=== PATIENT | male | born 1970 | race Two or more races ===

== ENCOUNTER → 2016-11-20 | Emergency (ER) | payer SELFPAY ==
[~2016-11-20] MED LIST: FAMOTIDINE 20 MG/50 ML IVPB 20 MG in PREMIX 50 IVPB ONE; MAG HYDROX/AL HYDROX/SIMETH 355 ML ORAL.SUSP PO ONE
[2016-11-20 10:05] VITALS: BP 129/77; PULSE 83; TEMP 98.3; BMI 30.2
--- NOTE | 2016-11-20 10:13 | PDOC ---
History of Present Illness - General Chief Complaint: Pain Stated Complaint: ABD PAIN Time Seen by Provider: 11/20/16 10:13 Past History - Past Medical History Allergies/Adverse Reactions: Allergies Allergy/AdvReac Type Severity Reaction Status Date / Time codeine [Codeine] Allergy Severe anaphylaxis Verified 11/20/16 10:05 Home Medications: Ambulatory Orders NK [No Known Home Medication] 08/07/16 Asthma: Yes Diabetes: Yes - Surgical History Abdominal Surgery: Yes (HERNIA) - Immunization History Td Vaccination: Yes Immunization Up to Date: Yes - Psycho/Social/Smoking Cessation Hx Anxiety: No Suicidal Ideation: No Smoking Status: No Smoking History: Never smoked Have you smoked in the past 12 months: No Number of Cigarettes Smoked Daily: 0 Hx Alcohol Use: No Drug/Substance Use Hx: No Substance Use Type: None *Physical Exam - Vital Signs Last Vital Signs Temp Pulse Resp BP Pulse Ox 98.3 F 83 20 129/77 98 11/20/16 10:01 11/20/16 10:01 11/20/16 10:01 11/20/16 10:01 11/20/16 10:01 Medical Decision Making - Medical Decision Making Pt [facility] after i signed up for the ptaient I was not able to evaluate the patient. *DC/Admit/Observation/Transfer Diagnosis at time of Disposition: Abdominal pain Qualifiers: Abdominal location: epigastric Qualified Code(s): R10.13 - Epigastric pain - Discharge Dispostion Disposition: LEFT BEFORE [facility] - Referrals Referrals: Nuria Pratt [Primary Care Provider] -
== END | disposition left against medical advice (07) ==
LOC: JER 09:58
DX: Z53.21 Procedure and treatment not carried out due to patient leaving prior to being seen by health care provider (principal)
CPT/HCPCS: 99281-25

== ENCOUNTER 2016-12-23 14:49 | Emergency (ER) | payer SELFPAY ==
[2016-12-23 14:59] VITALS: BMI 30.2
[2016-12-23] MEDS ORDERED: SODIUM CHLORIDE 1,000 ML IV STA ×2 (15:37→17:26)
[2016-12-23] MEDS ORDERED: INSULIN REGULAR HUMAN 100 UNITS/ML *VIAL IVPUSH ONE (15:55)
[2016-12-23 16:25] LABS: BASOPHIL 0.5 % (0-2.0); EOSINOPHIL 1.6 % (0-4.5); MCH 29.8 pg (25.7-33.7); MCHC 35.6 g/dl (32.0-35.9); MEAN CELL VOLUME 83.7 fl (80-96); MEAN PLT VOLUME 10.5 fl (7.5-11.1); NEUTROPHILS 67.9 % (42.8-82.8); PLATELET COUNT 239 K/MM3 (134-434); RDW 12.9 % (11.9-15.9); WHITE BLOOD COUNT 6.4 K/mm3 (4.0-10.0)
--- NOTE | 2016-12-23 16:45 | PDOC ---
*Physical Exam - Vital Signs Last Vital Signs Temp Pulse Resp BP Pulse Ox 97.8 F 72 18 122/83 97 12/23/16 14:55 12/23/16 14:55 12/23/16 14:55 12/23/16 14:55 12/23/16 14:55 - Physical Exam Comments: 12/23/16 17:49 The patient was examined by [FRITZ He] under my direct supervision. I personally evaluated the patient. I concur with the above findings and the plan of care. 12/23/16 18:13 patient is a 46-year-old, who present polydipsia and polyuria associated w Significantly elevated blood sugar.In the ER, patient is awake and alert, nontoxic appearing. CMP reveals blood glucose of 640 with 1+ acetone. Anion gap is noted to be 12. Sodium bicarbonate is within normal limit. I do not suspect DKA at this time as there is no evidence of increased anion gap are significantly decreased sodium bicarbonate, however given patient's noncompliance and significantly elevated blood glucose, patient was advised of the need for admission, rehydration and better glucose control. He expressed understanding of the risks associated with poorly controlled diabetes but refused and wished to sign out AMA. Patient's metformin prescription was L a chronically sent to his preferred pharmacy. Patient advised to follow-up with medical clinic promptly. ED Treatment Course - LABORATORY CBC & Chemistry Diagram: 12/23/16 16:00 12/23/16 16:00 - ADDITIONAL ORDERS Additional order review: 12/23/16 16:00 RBC 4.76 MCV 83.7 MCHC 35.6 RDW 12.9 MPV 10.5 D Neutrophils % 67.9 D Lymphocytes % 22.8 D Monocytes % 7.2 Eosinophils % 1.6 Basophils % 0.5 - Medications Given in the ED: ED Medications Discontinued Medications Generic Name Dose Route Start Last Admin Trade Name Freq PRN Reason Stop Dose Admin Sodium Chloride 1,000 mls @ 1,000 mls/hr 12/23/16 15:37 12/23/16 16:02 Normal Saline - IV 12/23/16 16:36 1,000 mls/hr ASDIR STA Administration Insulin Human Regular 6 units 12/23/16 15:55 12/23/16 16:03 Novolin R Vial *For Ivpush Or Iv Drip Only* IVPUSH 12/23/16 15:56 6 unit ONCE ONE Administration *DC/Admit/Observation/Transfer Diagnosis at time of Disposition: Hyperglycemia, Hyponatremia DKA (diabetic ketoacidoses) Qualifiers: Diabetes mellitus type: type 1 Diabetes mellitus complication detail: without coma Qualified Code(s): E10.10 - Type 1 diabetes mellitus with ketoacidosis without coma - Discharge Dispostion Disposition: AGAINST MEDICAL ADVICE Condition at time of disposition: Fair - Prescriptions Prescriptions: Metformin HCl [Glucophage -] 500 mg PO BID #60 tablet - Referrals Referrals: Nuria Pratt [Primary Care Provider] - - Patient Instructions Additional Instructions: You have refused further evaluation and admission in the ED. You understand that you can return at any point to continue work up. Please take your metformin [place] follow-up at [facility] at [phone]
--- NOTE | 2016-12-23 16:57 | PDOC ---
History of Present Illness - General Chief Complaint: Blood Sugar Problem Stated Complaint: HIGH BLOOD SUGAR Time Seen by Provider: 12/23/16 15:36 History Source: Patient - History of Present Illness Timing/Duration: other Associated Symptoms: denies: chest pain, cough, diaphoresis, nausea/vomiting, shortness of breath, weakness Past History - Past Medical History Allergies/Adverse Reactions: Allergies Allergy/AdvReac Type Severity Reaction Status Date / Time codeine [Codeine] Allergy Severe anaphylaxis Verified 12/23/16 14:55 Home Medications: Ambulatory Orders Metformin HCl [Glucophage -] 500 mg PO BID #60 tablet 12/23/16 Metformin HCl [Glucophage] 0 mg PO DAILY 12/23/16 Asthma: Yes Diabetes: Yes - Surgical History Abdominal Surgery: Yes (HERNIA) - Immunization History Td Vaccination: Yes Immunization Up to Date: Yes - Psycho/Social/Smoking Cessation Hx Anxiety: No Suicidal Ideation: No Smoking Status: No Smoking History: Never smoked Have you smoked in the past 12 months: No Number of Cigarettes Smoked Daily: 0 Information on smoking cessation initiated: No Hx Alcohol Use: No Drug/Substance Use Hx: No Substance Use Type: None Review of Systems - Review of Systems Constitutional: No: Chills, Fever Respiratory: No: Cough, Shortness of Breath Cardiac (ROS): No: Chest Pain ABD/GI: No: Diarrhea, Nausea, Vomiting : Yes: Frequency. No: Burning, Dysuria, Flank Pain, Hematuria Endocrine: Yes: Increased Thirst, Increased Urine *Physical Exam - Vital Signs Last Vital Signs Temp Pulse Resp BP Pulse Ox 97.8 F 72 18 122/83 97 12/23/16 14:55 12/23/16 14:55 12/23/16 14:55 12/23/16 14:55 12/23/16 14:55 - Physical Exam General Appearance: Yes: Appropriately Dressed. No: Apparent Distress HEENT: positive: Normal Voice Neck: positive: Supple Respiratory/Chest: positive: Lungs Clear, Normal Breath Sounds. negative: Respiratory Distress Cardiovascular: positive: Regular Rate, S1, S2 Gastrointestinal/Abdominal: positive: Soft. negative: Tender Musculoskeletal: negative: CVA Tenderness Extremity: positive: Normal Inspection Integumentary: positive: Dry, Warm Neurologic: positive: Fully Oriented, Alert, Normal Mood/Affect ED Treatment Course - LABORATORY CBC & Chemistry Diagram: 12/23/16 16:00 12/23/16 16:00 - ADDITIONAL ORDERS Additional order review: 12/23/16 16:00 RBC 4.76 MCV 83.7 MCHC 35.6 RDW 12.9 MPV 10.5 D Neutrophils % 67.9 D Lymphocytes % 22.8 D Monocytes % 7.2 Eosinophils % 1.6 Basophils % 0.5 - Medications Given in the ED: ED Medications Discontinued Medications Generic Name Dose Route Start Last Admin Trade Name Samreen PRN Reason Stop Dose Admin Sodium Chloride 1,000 mls @ 1,000 mls/hr 12/23/16 15:37 12/23/16 16:02 Normal Saline - IV 12/23/16 16:36 1,000 mls/hr ASDIR STA Administration Insulin Human Regular 6 units 12/23/16 15:55 12/23/16 16:03 Novolin R Vial *For Ivpush Or Iv Drip Only* IVPUSH 12/23/16 15:56 6 unit ONCE ONE Administration Medical Decision Making - Medical Decision Making 12/23/16 16:53 46 yo M, h/o asthma, NIDDM and has not taken his diabetic meds in almost a year 2/2 lack of insurance, "I have been controlling my sugar with vit B as per pt", now here w/ polydipsia/uria and dry mouth x several days. States he rarely check his sugar at home but checked it this am and machine read HI. See exam Hyperglycemia 2/2 med non-compliance Stable in ED -IVF -insulin -labs r/o complications, i.e DKA -reassess 12/23/16 17:25 BG 640 w/ small acetone. NA 129, K wnl. Anion gap of 12, VBG pending. M/l mild DKA which we will continue managing w/ IVF and SQ insulin. Will admit at this time 12/23/16 17:32 Pt informed of results and told that he might be in mild DKA which is life threatening and that he needs to be admitted. Pt verbalized understanding but adamant that he does not want to be admitted. Pt told me "I am not going to and I am not staying". Agrees to further management of his hyperglycemia in ED and states he will sign out AMA after that 12/23/16 17:36 12/23/16 17:45 Pt now refuses additional blood draw for VBG or to give urine. FS now 313. Pt requesting discharge. Appears to have capacity and able to verbalize understanding. AMA form signed. Pt given rx for metformin which he says he will purchase. Declines SW c/s to assist w/ insurance. States " I can take care of it on my own.". ED attg and nursing staff aware 12/23/16 17:53 12/23/16 17:55 *DC/Admit/Observation/Transfer Diagnosis at time of Disposition: Hyperglycemia, Hyponatremia DKA (diabetic ketoacidoses) Qualifiers: Diabetes mellitus type: type 1 Diabetes mellitus complication detail: without coma Qualified Code(s): E10.10 - Type 1 diabetes mellitus with ketoacidosis without coma - Discharge Dispostion Disposition: AGAINST MEDICAL ADVICE Condition at time of disposition: Fair - Prescriptions Prescriptions: Metformin HCl [Glucophage -] 500 mg PO BID #60 tablet - Referrals Referrals: Nuria Pratt [Primary Care Provider] - - Patient Instructions Additional Instructions: You have refused further evaluation and admission in the ED. You understand that you can return at any point to continue work up. Please take your metformin [place] follow-up at [facility] at [phone]
[2016-12-23 17:01] LABS: ALBUMIN 3.9 g/dl (3.4-5.0); ALK PHOS 230 U/L (45-117); ANION GAP 13 (8-16); BILIRUBIN,TOTAL 0.7 mg/dL (0.2-1.0); CALCIUM 9.1 mg/dL (8.5-10.1); CO2 24 mmol/L (21-32); COCKROFT - GAULT 103.31; CREATININE 1.2 mg/dL (0.7-1.3)
[2016-12-23 17:25] LABS: GLUCOSE,RANDOM 640 mg/dL (74-106)
[2016-12-23 17:52] LABS: TOT PROT 6.8 g/dl (6.4-8.2)
[2016-12-23 18:06] VITALS: BP 134/78; PULSE 78; TEMP 97.6
== END 2016-12-23 18:06 | disposition left against medical advice (07) ==
LOC: JER 14:49
PROC: 3E0337Z Introduction of Electrolytic and Water Balance Substance into Peripheral Vein, Percutaneous Approach (ICD-10-PCS; principal; 2016-12-23)
PROC: 3E033VG Introduction of Insulin into Peripheral Vein, Percutaneous Approach (ICD-10-PCS; 2016-12-23)
DX: E13.10 Other specified diabetes mellitus with ketoacidosis without coma (principal); Z79.84 Long term (current) use of oral hypoglycemic drugs; Z91.14 Patient's other noncompliance with medication regimen; E87.1 Hypo-osmolality and hyponatremia
CPT/HCPCS: 36415; 80053; 82009; 85025; 99282-25

== ENCOUNTER 2017-11-11 16:32 | Inpatient (IN) | payer SELFPAY ==
[2017-11-11 16:52] VITALS: BP 135/84; PULSE 96; TEMP 98.2; BMI 30.1
--- NOTE | 2017-11-11 16:55 | PDOC ---
Rapid Medical Evaluation Time Seen by Provider: 11/11/17 16:45 Medical Evaluation: Allergies Allergy/AdvReac Type Severity Reaction Status Date / Time codeine [Codeine] Allergy Severe Verified 11/11/17 16:48 Vital Signs Temp Pulse Resp BP Pulse Ox 98.2 F 96 H 16 135/84 99 11/11/17 16:45 11/11/17 16:45 11/11/17 16:45 11/11/17 16:45 11/11/17 16:45 11/11/17 16:55 I have performed a brief in-person evaluation of this patient. The patient presents with a chief complaint of:dysuria/frequency/hematuria. Seen in ED for same 11/05 (under different registrar aware and will merge at some point), no labs/ua/CT done. Dx w/ likely passage of stone and sent home w/ refill of metformin. H/o DM, diverticulitis Pertinent physical exam findings:stable w/ unremarkable exam I have ordered the following:labs/ua The patient will proceed to the ED for further evaluation.
--- NOTE | 2017-11-11 17:18 | PDOC ---
History of Present Illness - General Chief Complaint: Urinary Problem Stated Complaint: PAIN Time Seen by Provider: 11/11/17 16:45 History Source: Patient Exam Limitations: No Limitations - History of Present Illness Initial Comments: CHIEF COMPLAINT: 47 y/o afebrile male with PMH DM c/o increased urinary frequency, excessive thirst, decreased appetite and fatigue x 3 days. HISTORY OF PRESENT ILLNESS: The patient was seen here on the night of 11/04 and diagnosed with kidney stones. He was discharged to home and states he drank lots of fluids and eventually he started urinating clear fluid and his pain resolved. However, his urinary frequency persisted, along with excessive thirst and fatigue. He denies f/c, n/v/d, CP, SOB, back pain, hematuria, dysuria. Vital signs on arrival are within normal limits. REVIEW OF SYSTEMS: GENERAL/CONSTITUTIONAL: No fever/chills. No weakness. No weight change. + decreased appetite. HEAD, EYES, EARS, NOSE AND THROAT: No change in vision. No ear pain or discharge. No sore throat. CARDIOVASCULAR: No chest pain or shortness of breath. RESPIRATORY: No cough, wheezing, or hemoptysis. GASTROINTESTINAL: No abd pain, nausea, vomiting, diarrhea, constipation. GENITOURINARY: +urinary frequency. No dysuria or hematuria MUSCULOSKELETAL: No joint or muscle swelling or pain. No neck or back pain. SKIN: No rash or easy bruising. NEUROLOGIC: No headache, vertigo, loss of consciousness, or loss of sensation. PHYSICAL EXAM: GENERAL: The patient is awake, alert, and fully oriented, in no acute distress. He is well appearing and ambulatory. HEAD: Normal with no signs of trauma. ENT: Pupils equal, round and reactive to light, extraocular movements intact, sclera anicteric, conjunctiva clear. Dry cracked lips. Moderately dry mucous membranes LUNGS: Clear to auscultation bilaterally. Normal excursion. No respiratory distress or use of accessory muscles. CV: RRR, S1/S2, no MRG. Cap refill < 2 sec. ABDOMEN: Soft, non-distended, moderate TTP of LLQ. No rebound, guarding or rigidity. No suprapubic TTP. No pelvic TTP. BACK: No CVA TTP b/l. EXTREMITIES: Normal range of motion, no edema. NEUROLOGICAL: Normal speech, normal gait. CN II-XII grossly intact. PSYCH: Normal mood, normal affect. SKIN: Warm, dry, normal turgor, no rashes or lesions noted. Past History - Past Medical History Allergies/Adverse Reactions: Allergies Allergy/AdvReac Type Severity Reaction Status Date / Time codeine [Codeine] Allergy Severe Verified 11/11/17 16:48 Home Medications: Ambulatory Orders Albuterol [Ventolin] 17 gm IH ASDIR 01/13/12 Metformin HCl 500 mg PO BID 10/01/17 Asthma: Yes - Suicide/Smoking/Psychosocial Hx Smoking Status: No Smoking History: Never smoked Number of Cigarettes Smoked Daily: 0 Hx Alcohol Use: Yes (occasionaly) *Physical Exam - Vital Signs Last Vital Signs Temp Pulse Resp BP Pulse Ox 98.2 F 96 H 16 135/84 99 11/11/17 16:45 11/11/17 16:45 11/11/17 16:45 11/11/17 16:45 11/11/17 16:45 ED Treatment Course - LABORATORY CBC & Chemistry Diagram: 11/11/17 16:59 11/11/17 16:59 Medical Decision Making - Medical Decision Making A/P: 47 y/o afebrile male c/o increased urinary frequency, fatigue, decreased appetite x 3 days. Plan is as follows: 1. UA/culture 2. Labs 3. IV fluids Laboratory Tests 11/11/17 11/11/17 11/11/17 16:59 16:59 17:09 WBC 16.0 H Neutrophils % 82.9 H Sodium 129 L Potassium 4.4 Chloride 92 L Carbon Dioxide 24 BUN 29 H Creatinine 1.4 H Random Glucose 592 H* Urine Protein 1+ H Urine Glucose (UA) 3+ H Urine Ketones 1+ H Urine Blood 3+ H Ur Leukocyte Esterase 3+ H Urine WBC (Auto) 160 Urine RBC (Auto) 40 Ordered IV fluids, Insulin, EKG/CXR for admission. Patient admits he was just started on Metformin 3 days ago. He was prescribed 1000mg but he believes that is too much so he cuts it in half. PCP is Dr. Pratt, who admits to hospitalist. Hospitalist microblogged at 6:22pm. Spoke with Dr. Foster who accepts admission for Dr. Murguia. 2+ acetone 2nd bag of IV fluids ordered 1g IV rocephin ordered. went to discuss the plan with the patient and he is refusing to be admitted, stating he needs to go home right now. I explained to him and his significant other how dangerous it will be to leave with 596 glucose, 2+ acetone and a UTI. I explained that he could cause permanent damage to his kidneys, his heart, blood vessels, etc. He states he understands everything that I am saying but he still wants to leave and agrees to sign out AMA. The patient ambulates without difficulty out of the emergency department. He is alert and oriented and of sound decision making capacity. He leaves AGAINST MEDICAL ADVICE. AMA-AGAINST MEDICAL ADVICE The patient is a 47-year-old male who wants to leave the [facility] Emergency Department before assessment, diagnosis and treatment are completed. The patient has been counseled in regard to the benefits of remaining for treatment and the risks of leaving before medical evaluation and care are provided. These risks are many and include failure to diagnose the condition, failure to provide needed treatment, and a failure to obtain needed specialty care as required. The patient has been informed that failure to complete needed diagnosis and treatment may result in pain, worsening of any medical conditions, possible permanent disability, and . Despite receiving detailed information regarding the benefits of completing care as well as the risks of leaving, the patient has elected to leave. An AMA form was completed. The patient has been told that they are welcome to return to the emergency department at any time should their condition worsen or if they have change their mind. *DC/Admit/Observation/Transfer Diagnosis at time of Disposition: Hyperglycemia, Diabetic acetonemia Uncontrolled diabetes mellitus Qualifiers: Diabetes mellitus type: type 2 Diabetes mellitus medical terminologist insulin use: without medical terminologist use Diabetes mellitus complication status: with unspecified complications Qualified Code(s): E11.8 - Type 2 diabetes mellitus with unspecified complications UTI (urinary tract infection) Qualifiers: Urinary tract infection type: site unspecified Hematuria presence: with hematuria Qualified Code(s): N39.0 - Urinary tract infection, site not specified - Discharge Dispostion Disposition: AGAINST MEDICAL ADVICE Condition at time of disposition: Fair Admit: Yes - Referrals Referrals: Nuria Pratt [Primary Care Provider] - - Patient Instructions - Post Discharge Activity
[2017-11-11 17:22] LABS: BASO % 0.5 % (0-2.0); EOS % 0.3 % (0-4.5); HEMATOCRIT 35.6 % (35.4-49); HEMOGLOBIN 11.9 GM/dL (11.7-16.9); LYMPH % 6.6 % (8-40); MCH 28.7 pg (25.7-33.7); MCHC 33.6 g/dl (32.0-35.9); MEAN CELL VOLUME 85.7 fl (80-96); MEAN PLT VOLUME 8.2 fl (7.5-11.1); MONO % 9.7 % (3.8-10.2); NEUT % 82.9 % (42.8-82.8); PLATELET COUNT 440 K/MM3 (134-434); RBC 4.15 M/mm3 (4.00-5.60); RDW 13.1 % (11.9-15.9)
[2017-11-11 17:23] LABS: URINE APPEARANCE CLOUDY; URINE BILIRUBIN NEGATIVE (NEGATIVE); URINE BLOOD 3+ (NEGATIVE); URINE COLOR LTYELLOW; URINE GLUCOSE (UA) 3+ (NEGATIVE); URINE KETONE 1+ (NEGATIVE); URINE NITRITE NEGATIVE (NEGATIVE); URINE UROBILINOGEN NEGATIVE mg/dL (0.2-1.0)
[2017-11-11 17:24] LABS: URINE LEUK ESTERASE 3+ (NEGATIVE); URINE PROTEIN 1+ (NEGATIVE)
[2017-11-11 17:34] LABS: EPI CELLS RARE /HPF (FEW); URINE BACTERIA RARE /hpf (NONE SEEN); URINE MUCUS RARE
[2017-11-11 17:43] LABS: ALBUMIN 2.6 g/dl (3.4-5.0); ANION GAP 13 (8-16); BLOOD UREA NITROGEN 29 mg/dL (7-18); CALCIUM 9.2 mg/dL (8.5-10.1); CHLORIDE 92 mmol/L (98-107); CO2 24 mmol/L (21-32); CREATININE 1.4 mg/dL (0.7-1.3); POTASSIUM 4.4 mmol/L (3.5-5.1); SGOT/AST 9 U/L (15-37); SGPT/ALT 31 U/L (12-78); SODIUM 129 mmol/L (136-145)
[2017-11-11 17:45] LABS: ALK PHOS 216 U/L (45-117); BILIRUBIN,TOTAL 0.7 mg/dL (0.2-1.0); TOT PROT 7.4 g/dl (6.4-8.2)
[2017-11-11 17:50] LABS: GLUCOSE,RANDOM 592 mg/dL (74-106)
[2017-11-11] MEDS ORDERED: INSULIN REGULAR HUMAN 100 UNITS/ML *VIAL IVPUSH ONE (17:52)
[2017-11-11] MEDS ORDERED: SODIUM CHLORIDE 1,000 ML IV STA ×2 (17:52→18:48)
[2017-11-11 18:28] LABS: VENOUS PC02 41.7 mmHg (38-52); VENOUS PH 7.35 (7.32-7.42); VENOUS PO2 30.2 mmHg (28-48)
[2017-11-11] MEDS ORDERED: cefTRIAXone 1 GM/50 ML BAG (PRE-DOCKED) IVPB ONE (18:48)
--- NOTE | 2017-11-11 19:00 | PDOC ---
*Physical Exam - Vital Signs Last Vital Signs Temp Pulse Resp BP Pulse Ox 98.2 F 96 H 16 135/84 99 11/11/17 16:45 11/11/17 16:45 11/11/17 16:45 11/11/17 16:45 11/11/17 16:45 ED Treatment Course - LABORATORY CBC & Chemistry Diagram: 11/11/17 16:59 11/11/17 16:59 - ADDITIONAL ORDERS Additional order review: Laboratory Results 11/11/17 11/11/17 11/11/17 18:11 18:11 17:09 VBG pH 7.35 POC VBG pCO2 41.7 POC VBG pO2 30.2 Mixed VBG HCO3 22.2 Sodium Potassium Chloride Carbon Dioxide Anion Gap BUN Creatinine Creat Clearance w eGFR Random Glucose Calcium Total Bilirubin AST ALT Alkaline Phosphatase Total Protein Albumin Urine Color Ltyellow Urine Appearance Cloudy Urine pH 5.0 Ur Specific [place] 1.018 Urine Protein 1+ H Urine Glucose (UA) 3+ H Urine Ketones 1+ H Urine Blood 3+ H Urine Nitrite Negative Urine Bilirubin Negative Urine Urobilinogen Negative Ur Leukocyte Esterase 3+ H Urine WBC (Auto) 160 Urine RBC (Auto) 40 Ur Epithelial Cells Rare Urine Bacteria Rare Urine Mucus Rare Acetone, Qual Positive moderate 2+ 11/11/17 16:59 VBG pH POC VBG pCO2 POC VBG pO2 Mixed VBG HCO3 Sodium 129 L Potassium 4.4 Chloride 92 L Carbon Dioxide 24 Anion Gap 13 BUN 29 H Creatinine 1.4 H Creat Clearance w eGFR 54.80 Random Glucose 592 H* Calcium 9.2 Total Bilirubin 0.7 AST 9 L ALT 31 Alkaline Phosphatase 216 H Total Protein 7.4 Albumin 2.6 L Urine Color Urine Appearance Urine pH Ur Specific [place] Urine Protein Urine Glucose (UA) Urine Ketones Urine Blood Urine Nitrite Urine Bilirubin Urine Urobilinogen Ur Leukocyte Esterase Urine WBC (Auto) Urine RBC (Auto) Ur Epithelial Cells Urine Bacteria Urine Mucus Acetone, Qual 11/11/17 16:59 RBC 4.15 MCV 85.7 MCHC 33.6 RDW 13.1 MPV 8.2 Neutrophils % 82.9 H Lymphocytes % 6.6 L Monocytes % 9.7 Eosinophils % 0.3 Basophils % 0.5 - Medications Given in the ED: ED Medications Discontinued Medications Generic Name Dose Route Start Last Admin Trade Name Freq PRN Reason Stop Dose Admin Sodium Chloride 1,000 mls @ 1,000 mls/hr 11/11/17 17:52 11/11/17 18:12 Normal Saline - IV 11/11/17 18:51 1,000 mls/hr ASDIR STA Administration Insulin Human Regular 10 units 11/11/17 17:52 11/11/17 18:27 Novolin R Vial *For Ivpush Or Iv Drip Only* IVPUSH 11/11/17 17:53 10 unit ONCE ONE Administration Medical Decision Making - Medical Decision Making 11/11/17 18:59 Pt seen by the Advanced Practice Provider under my direct supervision Ancillary studies reviewed I agree with plan as outlined by the Advanced Practice Provider FRITZ Puentes *DC/Admit/Observation/Transfer Diagnosis at time of Disposition: Hyperglycemia, Diabetic acetonemia Uncontrolled diabetes mellitus Qualifiers: Diabetes mellitus type: type 2 Diabetes mellitus penitentiary insulin use: without terminal supervisor use Diabetes mellitus complication status: with unspecified complications Qualified Code(s): E11.8 - Type 2 diabetes mellitus with unspecified complications UTI (urinary tract infection) Qualifiers: Urinary tract infection type: site unspecified Hematuria presence: with hematuria Qualified Code(s): N39.0 - Urinary tract infection, site not specified - Discharge Dispostion Condition at time of disposition: Stable - Referrals Referrals: Nuria Pratt [Primary Care Provider] - - Patient Instructions - Post Discharge Activity
[2017-11-11] MEDS ORDERED: CEFTRIAXONE 1 GM/50 ML BAG ONE (19:03)
--- NOTE | 2017-11-12 18:43 | EKG ---
Test Reason : Blood Pressure : / mmHG Vent. Rate : 084 BPM Atrial Rate : 084 BPM P-R Int : 158 ms QRS Dur : 086 ms QT Int : 380 ms P-R-T Axes : 050 037 052 degrees QTc Int : 449 ms NORMAL SINUS RHYTHM NORMAL ECG NO PREVIOUS ECGS AVAILABLE Confirmed by TIARRA IBRAHIM MD ([id number]) on 11/12/2017 6:43:05 PM Referred By: Confirmed By:TIARRA IBRAHIM MD
== END 2017-11-11 19:21 | disposition left against medical advice (07) | DRG 420 ==
LOC: JER 16:32 → MERGE 18:49 → JERBED 18:49
PROVIDERS: ADMIT Internal Medicine; ATTEND Internal Medicine
DX: E11.65 Type 2 diabetes mellitus with hyperglycemia (principal); N39.0 Urinary tract infection, site not specified; E11.10 Type 2 diabetes mellitus with ketoacidosis without coma; Z79.84 Long term (current) use of oral hypoglycemic drugs; K57.30 Diverticulosis of large intestine without perforation or abscess without bleeding
CPT/HCPCS: 36415; 80053; 81003; 81015; 82009; 82803; 82962; 85025; 87040; 87086; 87186; 93005; 93010; 99283-25; J7030

== ENCOUNTER 2017-11-12 14:02 | Inpatient (IN) | payer MEDICARE ==
[2017-11-12 14:07] VITALS: BMI 30.2
[2017-11-12] MEDS ORDERED: SODIUM CHLORIDE 2,000 ML IV STA (14:22)
[2017-11-12 15:09] LABS: HEMOGLOBIN 10.9 GM/dL (11.7-16.9)
[2017-11-12 15:10] LABS: VENOUS PC02 32.6 mmHg (38-52); VENOUS PH 7.38 (7.32-7.42); VENOUS PO2 70.1 mmHg (28-48)
--- NOTE | 2017-11-12 15:19 | PDOC ---
History of Present Illness - General Chief Complaint: Pain Stated Complaint: PAIN Time Seen by Provider: 11/12/17 14:19 History Source: Patient Exam Limitations: No Limitations - History of Present Illness Initial Comments: CHIEF COMPLAINT: 47 y/o afebrile male with PMH DM c/o increased urinary frequency, excessive thirst, decreased appetite and fatigue x 4 days. HISTORY OF PRESENT ILLNESS: The patient was seen here yesterday (under different MR# [id number]) by myself, found to have glucose of 596 with 2+ acetone and signed out AMA. He has returned today for admission for hyperglycemia. The patient was also seen here on the night of 11/04 and diagnosed with kidney stones. He was discharged to home on 11/04 and states he drank lots of fluids and eventually he started urinating clear fluid and his pain resolved. However , his urinary frequency persisted, along with excessive thirst and fatigue. He denies f/c, n/v/d, CP, SOB, back pain, hematuria, dysuria. He admits to me today that he feels very tired. Vital signs on arrival are within normal limits. REVIEW OF SYSTEMS: GENERAL/CONSTITUTIONAL: No fever/chills. No weakness. No weight change. + decreased appetite. HEAD, EYES, EARS, NOSE AND THROAT: No change in vision. No ear pain or discharge. No sore throat. CARDIOVASCULAR: No chest pain or shortness of breath. RESPIRATORY: No cough, wheezing, or hemoptysis. GASTROINTESTINAL: No abd pain, nausea, vomiting, diarrhea, constipation. GENITOURINARY: +urinary frequency. No dysuria or hematuria MUSCULOSKELETAL: No joint or muscle swelling or pain. No neck or back pain. SKIN: No rash or easy bruising. NEUROLOGIC: No headache, vertigo, loss of consciousness, or loss of sensation. PHYSICAL EXAM: GENERAL: The patient is awake, alert, and fully oriented, in no acute distress. He is well appearing and ambulatory. HEAD: Normal with no signs of trauma. ENT: Pupils equal, round and reactive to light, extraocular movements intact, sclera anicteric, conjunctiva clear. Dry cracked lips. Moderately dry mucous membranes LUNGS: Clear to auscultation bilaterally. Normal excursion. No respiratory distress or use of accessory muscles. CV: RRR, S1/S2, no MRG. Cap refill < 2 sec. ABDOMEN: Soft, non-distended, moderate TTP of LLQ. No rebound, guarding or rigidity. No suprapubic TTP. No pelvic TTP. BACK: No CVA TTP b/l. EXTREMITIES: Normal range of motion, no edema. NEUROLOGICAL: Normal speech, normal gait. CN II-XII grossly intact. PSYCH: Normal mood, normal affect. SKIN: Warm, dry, normal turgor, no rashes or lesions noted. Past History - Past Medical History Allergies/Adverse Reactions: Allergies Allergy/AdvReac Type Severity Reaction Status Date / Time codeine [Codeine] Allergy Severe anaphylaxis Verified 11/12/17 14:07 Home Medications: Ambulatory Orders Albuterol Sulfate Inhaler - [Ventolin HFA Inhaler -] 1 - 2 inh PO Q4H #1 inhaler 11/05/17 Metformin HCl [Glucophage] 1,000 mg PO BID 7 Days #14 tablet 11/05/17 Asthma: Yes COPD: No Diabetes: Yes - Surgical History Abdominal Surgery: Yes (HERNIA) - Immunization History Td Vaccination: Yes Immunization Up to Date: Yes - Suicide/Smoking/Psychosocial Hx Smoking Status: No Smoking History: Never smoked Have you smoked in the past 12 months: No Number of Cigarettes Smoked Daily: 0 Hx Alcohol Use: No Drug/Substance Use Hx: No Substance Use Type: None *Physical Exam - Vital Signs Last Vital Signs Temp Pulse Resp BP Pulse Ox 97.8 F 109 H 20 140/75 11/12/17 14:03 11/12/17 14:03 11/12/17 14:03 11/12/17 14:03 ED Treatment Course - LABORATORY CBC & Chemistry Diagram: 11/12/17 15:03 11/12/17 15:03 - ADDITIONAL ORDERS Additional order review: Laboratory Results 11/12/17 15:03 VBG pH 7.38 POC VBG pCO2 32.6 L POC VBG pO2 70.1 H Mixed VBG HCO3 18.7 L - RADIOLOGY Radiology Studies Ordered: Category Date Time Status CHEST PA & LAT [RAD] Stat Radiology 11/12/17 14:23 Ordered Medical Decision Making - Medical Decision Making A/P: 47 y/o male with uncontrolled DM (was started on 1,000mg Metformin within last few weeks but feels it's "too much" so he only takes 500mg) c/o excessive thirst, fatigue and increased urinary frequency x 4 days. He now also admits that his legs feel crampy. Plan is as follows: 1. Labs 2. CXR 3. UA/culture 4. IV fluids 5. Admission to hospitalist Laboratory Tests 11/12/17 11/12/17 11/12/17 15:03 15:03 15:10 WBC 13.0 H D RBC 3.79 L D Hgb 10.9 L D Hct 32.0 L D Plt Count 412 D Neutrophils % 82.4 D Sodium 129 L Potassium 4.9 Chloride 95 L Carbon Dioxide 20 L Anion Gap 14 BUN 29 H D Creatinine 1.4 H Random Glucose 566 H* Urine Glucose (UA) 3+ H Urine Ketones 2+ H Urine Blood 3+ H Urine Nitrite Negative Urine Bilirubin Negative Urine Urobilinogen Negative Ur Leukocyte Esterase 2+ H Urine WBC (Auto) 77 Urine RBC (Auto) 81 Urine Bacteria Moderate Acetone, Qual Positive small 1+ Ordered EKG. Hospitalist microblogged at 3:[address] Johnson accepts admission to [facility] and requests non contrast CT of abd/ pelvis. Patient aware of plan and is willing to stay. *DC/Admit/Observation/Transfer Diagnosis at time of Disposition: Hyperglycemia, Acetonemia UTI (urinary tract infection) Qualifiers: Urinary tract infection type: site unspecified Hematuria presence: with hematuria Qualified Code(s): N39.0 - Urinary tract infection, site not specified - Discharge Dispostion Condition at time of disposition: Fair Admit: Yes - Referrals Referrals: Nuria Pratt [Primary Care Provider] - - Patient Instructions - Post Discharge Activity
[2017-11-12 15:24] LABS: URINE APPEARANCE SLCLOUDY; URINE BILIRUBIN NEGATIVE (NEGATIVE); URINE BLOOD 3+ (NEGATIVE); URINE COLOR STRAW; URINE GLUCOSE (UA) 3+ (NEGATIVE); URINE KETONE 2+ (NEGATIVE); URINE NITRITE NEGATIVE (NEGATIVE); URINE PROTEIN NEGATIVE (NEGATIVE); URINE UROBILINOGEN NEGATIVE mg/dL (0.2-1.0)
[2017-11-12 15:26] LABS: URINE LEUK ESTERASE 2+ (NEGATIVE)
[2017-11-12 15:27] LABS: BASO % 0.4 % (0-2.0); EOS % 0.7 % (0-4.5); LYMPH % 6.6 % (8-40); MCH 28.7 pg (25.7-33.7); MEAN CELL VOLUME 84.4 fl (80-96); MEAN PLT VOLUME 8.5 fl (7.5-11.1); MONO % 9.9 % (3.8-10.2); NEUT % 82.4 % (42.8-82.8); PLATELET COUNT 412 K/MM3 (134-434); RBC 3.79 M/mm3 (4.00-5.60); RDW 13.2 % (11.9-15.9)
[2017-11-12 15:31] LABS: URINE BACTERIA MODERATE /hpf (NONE SEEN)
[2017-11-12 15:46] LABS: ALBUMIN 2.5 g/dl (3.4-5.0); ANION GAP 14 (8-16); BILIRUBIN,TOTAL 0.6 mg/dL (0.2-1.0); BLOOD UREA NITROGEN 29 mg/dL (7-18); CALCIUM 8.8 mg/dL (8.5-10.1); CHLORIDE 95 mmol/L (98-107); CO2 20 mmol/L (21-32); CREATININE 1.4 mg/dL (0.7-1.3); POTASSIUM 4.9 mmol/L (3.5-5.1); SGOT/AST 12 U/L (15-37); SGPT/ALT 28 U/L (12-78); SODIUM 129 mmol/L (136-145); TOT PROT 6.8 g/dl (6.4-8.2)
[2017-11-12 15:48] LABS: ALK PHOS 179 U/L (45-117)
[2017-11-12 15:53] LABS: ACETONE SERUM POSITIVE SMALL 1+ (NEGATIVE)
[2017-11-12] MEDS ORDERED: INSULIN REGULAR HUMAN 100 UNITS/ML *VIAL IVPUSH ONE (15:55)
[2017-11-12 15:56] LABS: GLUCOSE,RANDOM 566 mg/dL (74-106)
[2017-11-12] MEDS ORDERED: INSULIN REGULAR HUMAN 100 UNITS/ML *VIAL ONE ×2 (15:56→15:59)
--- NOTE | 2017-11-12 17:26 | PN ---
Teaching Attending Note Name of Resident: Louise Boyd ATTENDING PHYSICIAN STATEMENT I saw and evaluated the patient. I reviewed the resident's note and discussed the case with the resident. I agree with the resident's findings and plan as documented with exceptions mentioned below. SUBJECTIVE: 47 yom with PMHx of NIDDM, non compliant with metformin, inguinal hernia, recently seen in ED for nephrolithiasis, came to ED yesterday with increased thirst, polyuria and fatigue. was found with blood sugars 600s and UTI, given ceftriaxone, planned for admission but signed out AMA. Came back today with persistent symptoms and foundwith hyperglycemia 600s, persistent UTI and acetonuria with AG 14. Had some hematuria when seen in ED on 11/05/2017 that resolved with plenty of fluids and passing stone, currently with no further hematuria, but does report lower abdominal discomfort that attributes to his hernia symptoms. No fevers, chills, cough, chest pain, palpitations, dyspnea noted. 12 point ROS done, neg for exertional chest pain or dsypnea. Was advised metformin 1000 mg but cut down to 500 mg and currently not on any meds. No home blood glucose checks. OBJECTIVE: Vital Signs Period Temp Pulse Resp BP Sys/Beltran Pulse Ox Last 24 Hr 97.8 F 109 20 140/75 Intake & Output 11/09/17 11/10/17 11/11/17 11/12/17 23:59 23:59 23:59 23:59 Intake Total 2000 Output Total 210 Balance 1790 Weight 205 lb GENERAL: Awake, alert, and fully oriented, in no acute distress. HEAD: Normal with no signs of trauma. EYES: Pupils equal, round and reactive to light, extraocular movements intact, sclera anicteric, conjunctiva clear. No lid lag. EARS, NOSE, THROAT: Ears normal, nares patent, oropharynx clear without exudates. Moist mucous membranes currently. NECK: Normal range of motion, supple, soft LUNGS: Breath sounds equal, clear to auscultation bilaterally. No wheezes, and no crackles. No accessory muscle use. HEART: Regular rate and rhythm, normal S1 and S2 ABDOMEN: Soft, tenderness in LMQ, suprapubic region, no hernia palpated with cough, left CVA tenderness, no voluntary or involuntary guarding or rigidity, positive bowel sounds. MUSCULOSKELETAL: Normal range of motion at all joints. No bony deformities or tenderness. No CVA tenderness. UPPER EXTREMITIES: 2+ pulses, warm, well-perfused. No cyanosis. No clubbing. No peripheral edema. LOWER EXTREMITIES: 2+ pulses, warm, well-perfused. No calf tenderness. No peripheral edema. NEUROLOGICAL: Cranial nerves II-XII intact. Normal speech. PSYCHIATRIC: Cooperative. Good eye contact. Appropriate mood and affect. SKIN: Warm, dry, normal turgor, no rashes or lesions noted, normal capillary refill. Laboratory Results - last 24 hr 11/12/17 11/12/17 11/12/17 15:03 15:03 15:03 WBC 13.0 H D RBC 3.79 L D Hgb 10.9 L D Hct 32.0 L D MCV 84.4 MCH 28.7 MCHC 34.0 RDW 13.2 Plt Count 412 D MPV 8.5 D Neutrophils % 82.4 D Lymphocytes % 6.6 L D Monocytes % 9.9 Eosinophils % 0.7 Basophils % 0.4 VBG pH 7.38 POC VBG pCO2 32.6 L POC VBG pO2 70.1 H Mixed VBG HCO3 18.7 L Sodium 129 L Potassium 4.9 Chloride 95 L Carbon Dioxide 20 L Anion Gap 14 BUN 29 H D Creatinine 1.4 H Creat Clearance w eGFR 54.80 Random Glucose 566 H* Calcium 8.8 Total Bilirubin 0.6 AST 12 L D ALT 28 D Alkaline Phosphatase 179 H D Creatine Kinase 51 Troponin I < 0.02 Total Protein 6.8 Albumin 2.5 L D Urine Color Urine Appearance Urine pH Ur Specific [place] Urine Protein Urine Glucose (UA) Urine Ketones Urine Blood Urine Nitrite Urine Bilirubin Urine Urobilinogen Ur Leukocyte Esterase Urine WBC (Auto) Urine RBC (Auto) Urine Bacteria Acetone, Qual Positive small 1+ 11/12/17 15:10 WBC RBC Hgb Hct MCV MCH MCHC RDW Plt Count MPV Neutrophils % Lymphocytes % Monocytes % Eosinophils % Basophils % VBG pH POC VBG pCO2 POC VBG pO2 Mixed VBG HCO3 Sodium Potassium Chloride Carbon Dioxide Anion Gap BUN Creatinine Creat Clearance w eGFR Random Glucose Calcium Total Bilirubin AST ALT Alkaline Phosphatase Creatine Kinase Troponin I Total Protein Albumin Urine Color Straw Urine Appearance Slcloudy Urine pH 5.0 Ur Specific [place] 1.017 Urine Protein Negative Urine Glucose (UA) 3+ H Urine Ketones 2+ H Urine Blood 3+ H Urine Nitrite Negative Urine Bilirubin Negative Urine Urobilinogen Negative Ur Leukocyte Esterase 2+ H Urine WBC (Auto) 77 Urine RBC (Auto) 81 Urine Bacteria Moderate Acetone, Qual urine and blood cultures sent CXR neg for acute process EKG nSR 79, no acute ST-T changes ASSESSMENT AND PLAN: 47 yom with PMHx of NIDDM, non compliant, recent diagnosis of nephrolithiasis, INguinal hernia admitted with severe hyperglycemia, complicated UTI and dehydration -Severe hyperglycemia with mild ketotic state/acetonuria (AG 14) -Mild anion gap acidosis -Complicated UTI, recent nephroliathiasis -Dehydration -Pseudohyponatremia -TRINH, suspect from Dehdyration (cannot r/o Underlying CKD with diabetes and proteinuria) -?inguinal hernia -Proteinuria, suspect from Diabetic nephropathy Plan s/p 2 L IVF and 10 units IV regular insulin. Levemir 20 units tonight and daily, titrate based on blood sugars. ISS AC and HS. GLucometer checks q2h x2, q4h x 2, then AC and HS if improving. Aggressive hydration, NS at 125 ml/hr. Endocrine consult. Diabetic/dietary education. Social work consult for home glucometer and medication assistance. Will eventually benefit from low dose ACEi once renal function stable. Check A1c. Ceftriaxone, follow up urine cultures. Given LMQ/Left CVA findings, CT A/P to assess for stones and intervention accordingly. DVTPPx with heparin. Dispo pending clinical improvement. Discussed with patient in detail, need for diet/medication compliance, close outpatient follow up and risks of persistent hyperglycemia including Infection, vascular disease, renal dysfunction, coma and discussed. Patient agreable to comply with treatment currently. Anticipate atleast 2 midnight stays given above. total admit time spent 55 min.
[2017-11-12] MEDS ORDERED: INSULIN DETEMIR 100 UNITS/ML MDV SQ ONE (17:31)
--- NOTE | 2017-11-12 18:10 | HP ---
CHIEF COMPLAINT: increased frequency, groin pain PCP: Dr Pratt HISTORY OF PRESENT ILLNESS: The p is a 47 year old male with a PMH of DM, recently diagnosed, asthma, kidney stone that presented today to the hospital complaining of increased frequency, thirst, groin pain that is present for several days. He was in [facility] emergency room on 11/05/17 for hematuria and discharged home. Yesterday we came back to emergency room where he was found to have hyperglycemia and UTI. The pt refused to be admitted to the hospital and left AMA. Today he is still complaining of increased frequency, thirst, right groin pain and would like to stay in the hospital for treatment. He states that hematuria resolved. He denies taking any medications at home and doesn't follow any primary care physician due to" insurance" problems. He was prescribed Metformin recently but didn't believe that he needs to take it. He denies dysuria, fever, chills, dizziness, chest pain, SOB. ER course was notable for: (1)NS (2)Insulin (3)CT abdomen PAST MEDICAL HISTORY: as above PAST SURGICAL HISTORY: umbilical hernia repair Social History: Smoking:no, never smoker Alcohol: occasionally Drugs: no Family History: Mother and grandmother: diabetes Allergies codeine [Codeine] Allergy (Severe, Verified 11/12/17 14:07) anaphylaxis HOME MEDICATIONS: Home Medications Medication Instructions Recorded Albuterol Sulfate Inhaler - 1 - 2 inh PO Q4H #1 inhaler 11/05/17 [Ventolin HFA Inhaler -] Metformin HCl [Glucophage] 1,000 mg PO BID 7 Days #14 tablet 11/05/17 REVIEW OF SYSTEMS CONSTITUTIONAL: Absent: fever, chills, diaphoresis, generalized weakness, malaise, loss of appetite, weight change HEENT: Absent: rhinorrhea, nasal congestion, throat pain, throat swelling, difficulty swallowing CARDIOVASCULAR: Absent: chest pain, syncope, palpitations, irregular heart rate, lightheadedness , RESPIRATORY: Absent: cough, shortness of breath, dyspnea with exertion, orthopnea, wheezing GASTROINTESTINAL: Absent: abdominal pain, abdominal distension, nausea, vomiting, diarrhea GENITOURINARY: flank pain when palpated, groin pain on right side Absent: dysuria, frequency, urgency, hesitancy, hematuria, flank pain, MUSCULOSKELETAL: Absent: myalgia, arthralgia, joint swelling, back pain, neck pain HEMATOLOGIC/IMMUNOLOGIC: Absent: easy bleeding, easy bruising ENDOCRINE: Absent: unexplained weight gain, unexplained weight loss, NEUROLOGIC: Absent: headache, focal weakness or paresthesias, dizziness, unsteady gait, seizure, PSYCHIATRIC: Absent: anxiety, depression PHYSICAL EXAMINATION Vital Signs - 24 hr 11/12/17 11/12/17 11/12/17 14:03 17:18 17:30 Temperature 97.8 F 98.9 F Pulse Rate 109 H Pulse Rate [ 85 Right Radial] Respiratory 20 18 18 Rate Blood Pressure 140/75 Blood Pressure 135/86 [Left Arm] O2 Sat by Pulse 98 Oximetry (%) GENERAL: Awake, alert, and fully oriented, in no acute distress. HEAD: Normal with no signs of trauma. EYES: Pupils equal, round and reactive to light, extraocular movements intact EARS, NOSE, THROAT: oropharynx clear without exudates. Dry mucous membranes. NECK: Normal range of motion, supple without lymphadenopathy, JVD, or masses. LUNGS: Breath sounds equal, clear to auscultation bilaterally. No wheezes, and no crackles. No accessory muscle use. HEART: Regular rate and rhythm, normal S1 and S2 without murmur, rub or gallop. ABDOMEN: Soft, tender in left groin, not distended, normoactive bowel sounds, no guarding, no rebound, CVA on left present. MUSCULOSKELETAL: Normal range of motion at all joints. No bony deformities or tenderness. UPPER EXTREMITIES: 2+ pulses, warm. No clubbing. No peripheral edema. LOWER EXTREMITIES: 2+ pulses, warm. No peripheral edema. NEUROLOGICAL: No facial asymmetry, normal speech, gait not observed. PSYCHIATRIC: Cooperative. Good eye contact. Appropriate mood and affect. SKIN: Warm, dry, normal turgor, no rashes. Laboratory Results - last 24 hr 11/12/17 11/12/17 11/12/17 15:03 15:03 15:03 WBC 13.0 H D RBC 3.79 L D Hgb 10.9 L D Hct 32.0 L D MCV 84.4 MCH 28.7 MCHC 34.0 RDW 13.2 Plt Count 412 D MPV 8.5 D Neutrophils % 82.4 D Lymphocytes % 6.6 L D Monocytes % 9.9 Eosinophils % 0.7 Basophils % 0.4 VBG pH 7.38 POC VBG pCO2 32.6 L POC VBG pO2 70.1 H Mixed VBG HCO3 18.7 L Sodium 129 L Potassium 4.9 Chloride 95 L Carbon Dioxide 20 L Anion Gap 14 BUN 29 H D Creatinine 1.4 H Creat Clearance w eGFR 54.80 Random Glucose 566 H* Calcium 8.8 Total Bilirubin 0.6 AST 12 L D ALT 28 D Alkaline Phosphatase 179 H D Creatine Kinase 51 Troponin I < 0.02 Total Protein 6.8 Albumin 2.5 L D Urine Color Urine Appearance Urine pH Ur Specific [place] Urine Protein Urine Glucose (UA) Urine Ketones Urine Blood Urine Nitrite Urine Bilirubin Urine Urobilinogen Ur Leukocyte Esterase Urine WBC (Auto) Urine RBC (Auto) Urine Bacteria Acetone, Qual Positive small 1+ 11/12/17 15:10 WBC RBC Hgb Hct MCV MCH MCHC RDW Plt Count MPV Neutrophils % Lymphocytes % Monocytes % Eosinophils % Basophils % VBG pH POC VBG pCO2 POC VBG pO2 Mixed VBG HCO3 Sodium Potassium Chloride Carbon Dioxide Anion Gap BUN Creatinine Creat Clearance w eGFR Random Glucose Calcium Total Bilirubin AST ALT Alkaline Phosphatase Creatine Kinase Troponin I Total Protein Albumin Urine Color Straw Urine Appearance Slcloudy Urine pH 5.[address] Ur [address] [place] [address] CT abdomen and pelvisUrine Protein Negative Urine Glucose (UA) 3+ H Urine Ketones 2+ H Urine Blood 3+ H Urine Nitrite Negative Urine Bilirubin Negative Urine Urobilinogen Negative Ur Leukocyte Esterase 2+ H Urine WBC (Auto) 77 Urine RBC (Auto) 81 Urine Bacteria Moderate Acetone, Qual ASSESSMENT/PLAN: The p is a 47 year old male with a PMH of DM, recently diagnosed, asthma, kidney stone that presented today to the hospital complaining of increased frequency, thirst, groin pain that is present for several days. He is admitted for hyperglycemia and UTI. 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 est, WBC, elevated WBC 16 -possibly due to kidney stones -will obtain CT abdomen and pelvis -Urine culture was ordered -Tylenol PO 650 PRN -continue Ceftriaxone 1 mg daily Hyponatremia: -corrected 137 -will continue NS Inguinal hernia: -pain in right groin -will continue Tylenol for pain and f/u CT F/E/N: NS/no changes/Diabetic DVT PPX; Heparin Disposition: tele monitoring Problem List - Problem (1) Acetonemia Code(s): R79.89 - OTHER SPECIFIED ABNORMAL FINDINGS OF BLOOD CHEMISTRY (2) Hyperglycemia Code(s): R73.9 - HYPERGLYCEMIA, UNSPECIFIED (3) UTI (urinary tract infection) Code(s): N39.0 - URINARY TRACT INFECTION, SITE NOT SPECIFIED Qualifiers: Urinary tract infection type: site unspecified Hematuria presence: with hematuria Qualified Code(s): N39.0 - Urinary tract infection, site not specified; R31.9 - Hematuria, unspecified; R31.9 - Hematuria, unspecified (4) Abdominal pain Code(s): R10.9 - UNSPECIFIED ABDOMINAL PAIN Qualifiers: Abdominal location: epigastric Qualified Code(s): R10.13 - Epigastric pain Visit type - Emergency Visit Emergency Visit: Yes ED Registration Date: 11/12/17 Care time: The patient presented to the Emergency Department on the above date and was hospitalized for further evaluation of their emergent condition. - New Patient This patient is new to me today: Yes Date on this admission: 11/12/17 - Critical Care Critical Care patient: No Hospitalist Screening - Colonoscopy Questionnaire Colonoscopy Questionnaire: Colonoscopy Questionnaire - Patient: 50 - 75 years old and never had a screening colonoscopy: No History of colon or rectal polyps, or CA: No History of IBD, Crohn's disease or UC: No History of abdominal radiation therapy as a child: No - Relative: 1 with colon or rectal CA, or polyps at age 60 or younger: No Colon or rectal CA diagnosed at age 45 or younger: No Multiple relatives with colon or rectal CA: No - Outcome: Screening Result: Negative Screen
[2017-11-12] MEDS ORDERED: CEFTRIAXONE 1 GM in DEXTROSE 5%-WATER - 50 ML IVPB SCH (18:15)
[2017-11-12] MEDS ORDERED: ACETAMINOPHEN 325 MG TABLET (FP) PO PRN (18:15)
[2017-11-12] MEDS: SODIUM CHLORIDE 1,000 ML IV SCH (18:43)
[2017-11-12] MEDS ORDERED: PT OWN MED DRAWER 7, Y5N ONE (19:55)
[2017-11-12] MEDS ORDERED: cefTRIAXone SODIUM 1 GM VIAL ONE (19:56)
[2017-11-12] MEDS ORDERED: DEXTROSE 5%-WATER - 50 ML IVPB ONE (19:57)
[2017-11-12] MEDS: CEFTRIAXONE 1 GM in SODIUM CHLORIDE 50 ML IVPB SCH (21:21)
[2017-11-12] MEDS: HEPARIN NA (PORCINE) 5,000 UNITS/ML 1ML VIAL SQ SCH (21:21)
[2017-11-12] MEDS ORDERED: INSULIN DETEMIR 100 UNITS/ML MDV SQ SCH (22:00)
[2017-11-12] MEDS: INSULIN SLIDING SCALE (NOVOLOG) 1 VIAL SQ SCH (23:00)
[2017-11-13] MEDS: INSULIN SLIDING SCALE (NOVOLOG) 1 VIAL SQ SCH ×2 (06:09→11:05)
[2017-11-13] MEDS: SODIUM CHLORIDE 1,000 ML IV SCH (06:11)
[2017-11-13 07:16] LABS: BASO % 0.9 % (0-2.0); EOS % 1.3 % (0-4.5); HEMATOCRIT 31.1 % (35.4-49); HEMOGLOBIN 10.6 GM/dL (11.7-16.9); LYMPH % 11.3 % (8-40); MCH 28.8 pg (25.7-33.7); MEAN CELL VOLUME 84.6 fl (80-96); MONO % 11.6 % (3.8-10.2); NEUT % 74.9 % (42.8-82.8); PLATELET COUNT 430 K/MM3 (134-434); RBC 3.67 M/mm3 (4.00-5.60); RDW 13.3 % (11.9-15.9); WHITE BLOOD COUNT 11.5 K/mm3 (4.0-10.0)
[2017-11-13 07:58] LABS: ALBUMIN 2.2 g/dl (3.4-5.0); ANION GAP 15 (8-16); BLOOD UREA NITROGEN 17 mg/dL (7-18); CALCIUM 8.6 mg/dL (8.5-10.1); CHLORIDE 101 mmol/L (98-107); CO2 22 mmol/L (21-32); POTASSIUM 4.1 mmol/L (3.5-5.1); SODIUM 138 mmol/L (136-145)
[2017-11-13 08:03] LABS: HDL CHOLESTEROL 28 mg/dL (40-60); LDL CHOLESTEROL (ONLY SJRH) 88 mg/dL (5-100)
[2017-11-13 08:04] LABS: ALK PHOS 140 U/L (45-117); BILIRUBIN,TOTAL 0.4 mg/dL (0.2-1.0); CHOLESTEROL 154 mg/dL (50-200); CREATININE 1.1 mg/dL (0.7-1.3); GLUCOSE,RANDOM 275 mg/dL (74-106); MAGNESIUM 2.3 mg/dL (1.8-2.4); PHOSPHOROUS 3.3 mg/dL (2.5-4.9); SGOT/AST 9 U/L (15-37); SGPT/ALT 22 U/L (12-78); TOT PROT 6.5 g/dl (6.4-8.2); TRIGLYCERIDES 228 mg/dL (35-160)
[2017-11-13] MEDS: HEPARIN NA (PORCINE) 5,000 UNITS/ML 1ML VIAL SQ SCH (09:27)
[2017-11-13] MEDS: CEFTRIAXONE 1 GM in SODIUM CHLORIDE 50 ML IVPB SCH (09:27)
[2017-11-13 11:13] VITALS: BP 132/85; PULSE 86; TEMP 98
--- NOTE | 2017-11-13 13:19 | PN ---
Teaching Attending Note Name of Resident: Emily Johnson SUBJECTIVE: Patient seen and examined, wants to leave, no new complaints otherwise. Denies any urinary symptoms. OBJECTIVE: Vital Signs Period Temp Pulse Resp BP Sys/Beltran Pulse Ox Last 24 Hr 97.8 F-98.9 F 79-109 15-22 132-146/75-88 98-98 Intake & Output 11/10/17 11/11/17 11/12/17 11/13/17 23:59 23:59 23:59 23:59 Intake Total 2480 2024 Output Total 210 Balance 2270 2024 Weight 205 lb General: no acute distress CVS; S1S2 regular Chest: No rales or wheezing abdomen:soft, unchanged LMQ/Left CVA tenderness, no voluntary or involuntary guarding or rigidity, positive bowel sounds extremities: no edema Active Medications Generic Name Dose Route Start Last Admin Trade Name Freq PRN Reason Stop Dose Admin Acetaminophen 650 mg 11/12/17 18:15 Tylenol - PO Q6H PRN pain Heparin Sodium (Porcine) 5,000 unit 11/12/17 22:00 11/13/17 09:27 Heparin - SQ 5,000 unit BID [place] Administration Sodium Chloride 1,000 mls @ 125 mls/hr 11/12/17 17:45 11/13/17 06:11 Normal Saline - IV 125 mls/hr ASDIR DAK[place] Administration Ceftriaxone Sodium 1 gm/ 50 mls @ 100 mls/hr 11/12/17 20:15 11/13/17 09:27 Sodium Chloride IVPB 100 mls/hr DAILY [place] Administration Insulin Aspart 1 vial 11/13/17 07:00 11/13/17 11:05 Novolog Vial Sliding Scale - SQ 12 units ACHS DAKOTA Administration Protocol Insulin Detemir 10 units 11/12/17 22:00 11/12/17 21:22 Levemir Vial SQ 10 units HS DAK[place] Administration Laboratory Results - last 24 hr 11/12/17 11/12/17 11/12/17 15:03 15:03 15:03 WBC 13.0 H D RBC 3.79 L D Hgb 10.9 L D Hct 32.0 L D MCV 84.4 MCH 28.7 MCHC 34.0 RDW 13.2 Plt Count 412 D MPV 8.5 D Neutrophils % 82.4 D Lymphocytes % 6.6 L D Monocytes % 9.9 Eosinophils % 0.7 Basophils % 0.4 VBG pH 7.38 POC VBG pCO2 32.6 L POC VBG pO2 70.1 H Mixed VBG HCO3 18.7 L Sodium 129 L Potassium 4.9 Chloride 95 L Carbon Dioxide 20 L Anion Gap 14 BUN 29 H D Creatinine 1.4 H Creat Clearance w eGFR 54.80 POC Glucometer Random Glucose 566 H* Hemoglobin A1c % Calcium 8.8 Phosphorus Magnesium Total Bilirubin 0.6 AST 12 L D ALT 28 D Alkaline Phosphatase 179 H D Creatine Kinase 51 Troponin I < 0.02 Total Protein 6.8 Albumin 2.5 L D Triglycerides Cholesterol Total LDL Cholesterol HDL Cholesterol Urine Color Urine Appearance Urine pH Ur Specific Clymer Urine Protein Urine Glucose (UA) Urine Ketones Urine Blood Urine Nitrite Urine Bilirubin Urine Urobilinogen Ur Leukocyte Esterase Urine WBC (Auto) Urine RBC (Auto) Urine Bacteria Acetone, Qual Positive small 1+ 11/12/17 11/12/17 11/13/17 15:10 22:30 05:53 WBC RBC Hgb Hct MCV MCH MCHC RDW Plt Count MPV Neutrophils % Lymphocytes % Monocytes % Eosinophils % Basophils % VBG pH POC VBG pCO2 POC VBG pO2 Mixed VBG HCO3 Sodium Potassium Chloride Carbon Dioxide Anion Gap BUN Creatinine Creat Clearance w eGFR POC Glucometer 452 297 Random Glucose Hemoglobin A1c % Calcium Phosphorus Magnesium Total Bilirubin AST ALT Alkaline Phosphatase Creatine Kinase Troponin I Total Protein Albumin Triglycerides Cholesterol Total LDL Cholesterol HDL Cholesterol Urine Color Straw Urine Appearance Slcloudy Urine pH 5.0 Ur Specific Clymer 1.017 Urine Protein Negative Urine Glucose (UA) 3+ H Urine Ketones 2+ H Urine Blood 3+ H Urine Nitrite Negative Urine Bilirubin Negative Urine Urobilinogen Negative Ur Leukocyte Esterase 2+ H Urine WBC (Auto) 77 Urine RBC (Auto) 81 Urine Bacteria Moderate Acetone, Qual 11/13/17 11/13/17 11/13/17 06:57 06:57 06:57 WBC 11.5 H RBC 3.67 L Hgb 10.6 L Hct 31.1 L MCV 84.6 MCH 28.8 MCHC 34.0 RDW 13.3 Plt Count 430 MPV 8.0 Neutrophils % 74.9 Lymphocytes % 11.3 D Monocytes % 11.6 H Eosinophils % 1.3 D Basophils % 0.9 VBG pH POC VBG pCO2 POC VBG pO2 Mixed VBG HCO3 Sodium 138 Potassium 4.1 Chloride 101 Carbon Dioxide 22 Anion Gap 15 BUN 17 D Creatinine 1.1 D Creat Clearance w eGFR > 60 POC Glucometer Random Glucose 275 H D Hemoglobin A1c % 10.8 H Calcium 8.6 Phosphorus 3.3 Magnesium 2.3 Total Bilirubin 0.4 D AST 9 L D ALT 22 D Alkaline Phosphatase 140 H D Creatine Kinase Troponin I Total Protein 6.5 Albumin 2.2 L Triglycerides 228 H Cholesterol 154 Total LDL Cholesterol 88 HDL Cholesterol 28 L Urine Color Urine Appearance Urine pH Ur Specific Clymer Urine Protein Urine Glucose (UA) Urine Ketones Urine Blood Urine Nitrite Urine Bilirubin Urine Urobilinogen Ur Leukocyte Esterase Urine WBC (Auto) Urine RBC (Auto) Urine Bacteria Acetone, Qual ASSESSMENT AND PLAN: 47 yom with PMHx of NIDDM, non compliant, recent diagnosis of nephrolithiasis, INguinal hernia admitted with severe hyperglycemia, complicated UTI and dehydration -Severe hyperglycemia with mild ketotic state/acetonuria (AG 14) -Mild anion gap acidosis -Complicated UTI, recent nephroliathiasis -Left hydronephrosis/Left hydroureter -Dehydration -Pseudohyponatremia -TRINH, suspect from Dehdyration (cannot r/o Underlying CKD with diabetes and proteinuria) -?inguinal hernia -Proteinuria, suspect from Diabetic nephropathy Plan: Patient wanting to leave AMA. Asking for metformin 500 mg prescription for his diabetes. Explained in detail about current fluctuating blood sugars with need for close monitoring, need for endocrinology input, also metformin not recommended given active infection/renal dysfunction and also suboptimal treatment for his current condition. ALso explained that patient needs insulin teaching and training and close monitoring of his blood sugars inhouse to determine appropriate dosing and ensure safe and correct administration at home. Also explained need for diabetic teaching, glucometer teaching to ensure safe disposition plan. Given markedly fluctuating blood sugars in the setting of current non compliance with diet inhouse, unable to determine appropriate diabetic management regimen without further inhouse monitoring and his risk for severe hyperglycemia or hypoglycemia with emperic discharge on insulin without teaching /training and monitoring. Also explained about the pending endocrinology input. Discussed in detail about urinary infection, also CT abdomen/Pelvis findings of hydronephrosis/hydroureter, need for urology input and need for close inhouse monitoring pending urine cultures for appropriate transition to oral antibiotics. Discussed risks of leaving including worsening hyperglycemia, urinary infection , permanent kidney damage, sepsis, permanent brain damage, acidosis, coma and . Patient relays full understanding of the risks but wants to leave. Patient was strongly recommend staying in the hospital and going to ED directly for further care. Patient does relay understanding of the same but wants to leave AMA.
--- NOTE | 2017-11-13 17:11 | DS ---
Physical Exam: SUBJECTIVE: Patient seen and examined, asking to leave AMA, overall unchanged. OBJECTIVE: Vital Signs Period Temp Pulse Resp BP Sys/Beltran Pulse Ox Last 24 Hr 98 F-98.9 F 79-86 15-22 132-146/79-88 98-98 PHYSICAL EXAM General: no acute distress CVS; S1S2 regular Chest: No rales or wheezing abdomen:soft, unchanged LMQ/Left CVA tenderness, no voluntary or involuntary guarding or rigidity, positive bowel sounds extremities: no edema LABS Laboratory Results - last 24 hr 11/12/17 11/13/17 11/13/17 22:30 05:53 06:57 WBC 11.5 H RBC 3.67 L Hgb 10.6 L Hct 31.1 L MCV 84.6 MCH 28.8 MCHC 34.0 RDW 13.3 Plt Count 430 MPV 8.0 Neutrophils % 74.9 Lymphocytes % 11.3 D Monocytes % 11.6 H Eosinophils % 1.3 D Basophils % 0.9 Sodium Potassium Chloride Carbon Dioxide Anion Gap BUN Creatinine Creat Clearance w eGFR POC Glucometer 452 297 Random Glucose Hemoglobin A1c % Calcium Phosphorus Magnesium Total Bilirubin AST ALT Alkaline Phosphatase Total Protein Albumin Triglycerides Cholesterol Total LDL Cholesterol HDL Cholesterol 11/13/17 11/13/17 06:57 06:57 WBC RBC Hgb Hct MCV MCH MCHC RDW Plt Count MPV Neutrophils % Lymphocytes % Monocytes % Eosinophils % Basophils % Sodium 138 Potassium 4.1 Chloride 101 Carbon Dioxide 22 Anion Gap 15 BUN 17 D Creatinine 1.1 D Creat Clearance w eGFR > 60 POC Glucometer Random Glucose 275 H D Hemoglobin A1c % 10.8 H Calcium 8.6 Phosphorus 3.3 Magnesium 2.3 Total Bilirubin 0.4 D AST 9 L D ALT 22 D Alkaline Phosphatase 140 H D Total Protein 6.5 Albumin 2.2 L Triglycerides 228 H Cholesterol 154 Total LDL Cholesterol 88 HDL Cholesterol 28 L HOSPITAL COURSE: Date of Admission:11/12/17 Date of Discharge: 11/13/17 (patient left AMA) Minutes to complete discharge: 40 Discharge Summary Reason For Visit: UTI,HYPERGLYCEMIA,ACETONEMIA Hospital Course: PLEASE NOTE THAT PATIENT LEFT AMA. Patient was placed on levemir, aggressive hydration. his blood sugars had shown some improvement. However he was noted with dietary non compliance during his stay. He was also placed on ceftriaxone, his CT A/P showed left sided hydonephrosis/Left hydroureter with possible passed stone. PLan was to continue close inhouse blood glucose monitoring, aggressive management, and urology/ endocrinology consult with diabetic education and social work assistance. However patient expressed wish to leave AMA, risks were explained in detail, patient relayed full understanding of the risks and signed out AMA. Condition: Unchanged/Unknown - Instructions Referrals: Nuria Pratt [Primary Care Provider] - Disposition: AGAINST MEDICAL ADVICE - Home Medications Comprehensive Discharge Medication List: Ambulatory Orders Albuterol Sulfate Inhaler - [Ventolin HFA Inhaler -] 1 - 2 inh PO Q4H #1 inhaler 11/05/17 Metformin HCl [Glucophage] 1,000 mg PO BID 7 Days #14 tablet 11/05/17 This patient is new to me today: No Emergency Visit: No Critical Care patient: No - Discharge Referral Referred to [facility] No
[2017-11-13] MEDS ORDERED: INSULIN DETEMIR 100 UNITS/ML MDV SQ SCH (22:00)
--- NOTE | 2017-11-14 00:11 | EKG ---
Test Reason : Blood Pressure : / mmHG Vent. Rate : 079 BPM Atrial Rate : 079 BPM P-R Int : 152 ms QRS Dur : 084 ms QT Int : 378 ms P-R-T Axes : 026 032 039 degrees QTc Int : 433 ms NORMAL SINUS RHYTHM NORMAL ECG WHEN COMPARED WITH ECG OF 07-AUG-2016 13:42, NO SIGNIFICANT CHANGE WAS FOUND Confirmed by TIARRA IBRAHIM MD ([id number]) on 11/14/2017 12:11:16 AM Referred By: Confirmed By:TIARRA IBRAHIM MD
== END 2017-11-13 14:04 | disposition left against medical advice (07) | DRG 463 ==
LOC: JER 14:02 → JERBED 16:29 → J4W 18:43
PROVIDERS: ADMIT Hospitalist; ATTEND Hospitalist
DX: N39.0 Urinary tract infection, site not specified (principal); E11.65 Type 2 diabetes mellitus with hyperglycemia; E87.1 Hypo-osmolality and hyponatremia; K40.90 Unilateral inguinal hernia, without obstruction or gangrene, not specified as recurrent; E86.0 Dehydration; N17.9 Acute kidney failure, unspecified; N13.30 Unspecified hydronephrosis; N18.9 Chronic kidney disease, unspecified; J45.909 Unspecified asthma, uncomplicated; R79.89 Other specified abnormal findings of blood chemistry
CPT/HCPCS: 36415; 71046-TC-FY; 74176-TC; 80053; 80061; 81003; 81015; 82009; 82550; 82803; 82962; 83036; 83721; 83735; 84100; 84484; 85025; 87040; 87086; 93005; 93010; 99285-25; J1644; J7030

== ENCOUNTER 2018-04-21 10:50 | Emergency (ER) | payer OTHER ==
[2018-04-21 11:04] VITALS: BP 136/77; PULSE 78; TEMP 98.3; BMI 28.0
[2018-04-21] MEDS ORDERED: IBUPROFEN 600 MG TABLET (FP) PO ONE ×2 (12:10→12:15)
--- NOTE | 2018-04-21 12:14 | PDOC ---
History of Present Illness - General Chief Complaint: Pain Stated Complaint: RIGHT FOOT IN PAIN Time Seen by Provider: 04/21/18 11:45 History Source: Patient Exam Limitations: No Limitations - History of Present Illness Initial Comments: 04/21/18 12:09 47 year old male with pmh of diabetes, and asthma presents with pain to right heel x 2 days. Patient reports pain with weight bearing only. Also reports noted swelling in area. Denies injuries or fall, states working standing all day. 04/21/18 12:10 Occurred: reports: other (2 days ) Severity: Yes: mild Method of Injury: Yes: unknown Modifying Factors: improves with: None Lower Ext. Injury Location - Specific Injury Location Hips: right hip: no evidence of injury Legs: right: normal inspection Knees: right no evidence of injury Ankle: right no evidence of injury Foot: right foot no evidence of injury Extremity Pain Location - Extremity Pain Location Extremity Pain Locations: right: foot Past History - Past Medical History Allergies/Adverse Reactions: Allergies Allergy/AdvReac Type Severity Reaction Status Date / Time codeine [Codeine] Allergy Severe anaphylaxis Verified 04/21/18 11:01 Home Medications: Ambulatory Orders Albuterol Sulfate Inhaler - [Ventolin Hfa Inhaler -] 1 - 2 inh PO QID 07/10/16 Metformin HCl [Glucophage] 1,000 mg PO BID 7 Days #14 tablet 11/05/17 Naproxen 500 gm MC BID #10 powder 04/21/18 Asthma: Yes COPD: No DVT: No Diabetes: Yes - Surgical History Abdominal Surgery: Yes (HERNIA) - Immunization History Td Vaccination: Yes Immunization Up to Date: Yes - Suicide/Smoking/Psychosocial Hx Smoking Status: No Smoking History: Never smoked Have you smoked in the past 12 months: No Number of Cigarettes Smoked Daily: 0 Hx Alcohol Use: No Drug/Substance Use Hx: No Substance Use Type: None, Alcohol Hx Substance Use Treatment: No Review of Systems - Review of Systems Able to Perform ROS?: Yes Is the patient limited Malian proficient: No Constitutional: No: Chills, Fever HEENTM: No: Nose Pain Respiratory: No: Cough, Shortness of Breath, Productive cough Cardiac (ROS): No: Chest Pain, Lightheadedness ABD/GI: No: Blood Streaked Bowels : No: Burning, Incontinence, Testicular Swelling Musculoskeletal: Yes: Other (right foot pain). No: Back Pain, Muscle Weakness Integumentary: No: Bruising, Erythema Neurological: No: Numbness, Paresthesia, Weakness Endocrine: No: Increased Hunger, Unexplained Weight Gain Hematologic/Lymphatic: No: Anemia, Bleeding Diathesis *Physical Exam - Vital Signs Last Vital Signs Temp Pulse Resp BP Pulse Ox 98.3 F 78 19 136/77 98 04/21/18 11:01 04/21/18 11:01 04/21/18 11:01 04/21/18 11:01 04/21/18 11:01 - Physical Exam General Appearance: Yes: Nourished, Appropriately Dressed. No: Apparent Distress HEENT: positive: EOMI, CARINA, Pharynx Normal Neck: positive: Supple. negative: Carotid bruit, Lymphadenopathy (R), Lymphadenopathy (L) Respiratory/Chest: positive: Lungs Clear, Normal Breath Sounds. negative: Respiratory Distress, Accessory Muscle Use Cardiovascular: positive: Regular Rhythm, Regular Rate, S1, S2 Extremity: positive: Normal Capillary Refill, Other (+ swelling to right heel, tender with palpation no calcaneous tenderness, able to flex and extend foot at ankle ) ED Treatment Course - RADIOLOGY Radiology Studies Ordered: Category Date Time Status FOOT-RIGHT [RAD] Stat Radiology 04/21/18 12:04 Ordered Medical Decision Making - Medical Decision Making 04/21/18 12:15 47 year old male with history of DM, and asthma complaining of pain to right heel x 2 days. Denies injury or fall. analgesia xray ordered 04/21/18 13:03 wet read by me; negative for fracture or bone spur Rx: naproxen f/u with shine worker 04/21/18 19:12 offical read shows no fracture, minimal spurring. *DC/Admit/Observation/Transfer Diagnosis at time of Disposition: Pain of right heel - Discharge Dispostion Disposition: HOME Condition at time of disposition: Good Decision to Admit order: No - Prescriptions Prescriptions: Naproxen 500 gm MC BID #10 powder - Referrals - Patient Instructions Printed Discharge Instructions: DI for Foot Pain Additional Instructions: Please wear good fitting shoes with insoles intact do not walk bare footed. Wear sturdy shoe when on feet for extended time Call shine worker for foot care. May call today to make an appointment - Post Discharge Activity Forms/Work/School Notes: Back to Work
== END 2018-04-21 13:10 | disposition home or self-care (01) ==
LOC: JERFT 10:50
DX: M79.671 Pain in right foot (principal); E11.9 Type 2 diabetes mellitus without complications; J45.909 Unspecified asthma, uncomplicated
CPT/HCPCS: 73630-TC-RT-FY; 99281-25

== ENCOUNTER 2018-07-04 18:45 | Emergency (ER) | payer OTHER ==
[2018-07-04 18:55] VITALS: BP 145/92; PULSE 106; TEMP 99.8; BMI 28.8
--- NOTE | 2018-07-04 18:55 | PDOC ---
Rapid Medical Evaluation Chief Complaint: Pain Time Seen by Provider: 07/04/18 18:52 Medical Evaluation: Allergies Allergy/AdvReac Type Severity Reaction Status Date / Time codeine [Codeine] Allergy Severe anaphylaxis Verified 04/21/18 11:01 07/04/18 18:53 I have performed a brief in person evaluation of this patient. This patient presents with a CC of: dental pain Pt is a 48 Yo male who states "My wisdom tooth is hurting." PE: Skin: Clear HEENT: No trismus, uvula midline Lungs: Clear Heart: RRR MS: Moves all extremities without difficulty. Neuro: Alert and oriented Psych: Appropriate affect The patient will proceed to the [facility] for further evaluation. Discharge Disposition - Diagnosis Pain, dental - Referrals - Patient Instructions - Post Discharge Activity
[2018-07-04] MEDS ORDERED: KETOROLAC TROMETHAMINE 60 MG/2 ML VIAL IM ONE (19:15)
[2018-07-04] MEDS ORDERED: AMOXICILLIN 500 MG CAPSULE (FP) PO ONE (19:15)
[2018-07-04] MEDS ORDERED: AMOXICILLIN 250 MG CAPSULE ONE (19:19)
[2018-07-04] MEDS ORDERED: KETOROLAC TROMETHAMINE 60 MG/2 ML VIAL ONE (19:19)
--- NOTE | 2018-07-04 19:26 | PDOC ---
History of Present Illness - General Chief Complaint: Pain Stated Complaint: TOOTH PAIN Time Seen by Provider: 07/04/18 18:52 History Source: Patient Exam Limitations: No Limitations - History of Present Illness Initial Comments: 07/04/18 19:19 48 yr male with painful toothache started 2 weeks ago worse today. pt has not seen a dentist in "years" no fever no chills. history of DM, Asthma Past History - Past Medical History Allergies/Adverse Reactions: Allergies Allergy/AdvReac Type Severity Reaction Status Date / Time codeine [Codeine] Allergy Severe anaphylaxis Verified 07/04/18 18:54 Home Medications: Ambulatory Orders Metformin HCl [Glucophage] 1,000 mg PO BID 7 Days #14 tablet 11/05/17 Amoxicillin/Potassium Clav [Augmentin 875-125 Tablet] 1 each PO BID #14 tablet 07/04/18 Naproxen [Naprosyn -] 500 mg PO BID PRN #20 tablet 07/04/18 Asthma: Yes COPD: No DVT: No Diabetes: Yes - Surgical History Abdominal Surgery: Yes (HERNIA) - Immunization History Td Vaccination: Yes Immunization Up to Date: Yes - Suicide/Smoking/Psychosocial Hx Smoking Status: No Smoking History: Never smoked Have you smoked in the past 12 months: No Number of Cigarettes Smoked Daily: 0 Hx Alcohol Use: No Drug/Substance Use Hx: No Substance Use Type: None, Alcohol Hx Substance Use Treatment: No Review of Systems - Review of Systems Able to Perform ROS?: Yes Is the patient limited Greenlandic proficient: No HEENTM: Yes: Symptoms Reported *Physical Exam - Vital Signs Last Vital Signs Temp Pulse Resp BP Pulse Ox 99.8 F H 106 H 18 145/92 98 07/04/18 18:52 07/04/18 18:52 07/04/18 18:52 07/04/18 18:52 07/04/18 18:52 - Physical Exam General Appearance: Yes: Nourished, Appropriately Dressed HEENT: positive: EOMI, CARINA, TMs Normal, Pharynx Normal, Other (multiple missing teeth poor dentition, right lower jaw with erythema around the molar, cracked tooth noted, no fluctuant abscess ) Medical Decision Making - Medical Decision Making 07/04/18 19:37 cc: toothache right lower jaw for a few weeks worse today no fever no chills no sore throat pt states he has no dentist plans to follow at [facility], I have also given the number for urgent care dental *DC/Admit/Observation/Transfer Diagnosis at time of Disposition: Pain, dental, Toothache - Discharge Dispostion Disposition: HOME Condition at time of disposition: Good - Prescriptions Prescriptions: Amoxicillin/Potassium Clav [Augmentin 875-125 Tablet] 1 each PO BID #14 tablet Naproxen [Naprosyn -] 500 mg PO BID PRN #20 tablet PRN Reason: Pain - Referrals [facility]errals: [facility]] - Patient Instructions Additional Instructions: gargle with warm salt water and peroxide 4-5 times a day take the antibiotic as prescribed take the naprosyn for pain with tylenol extra strength follow with the dental clinic at [facility] or with [facility] at [phone] call them to set up appointment [address], [place] - Post Discharge Activity Forms/Work/School Notes: Back to Work
== END 2018-07-04 19:46 | disposition home or self-care (01) ==
LOC: JERFT 18:45
DX: K08.89 Other specified disorders of teeth and supporting structures (principal); J45.909 Unspecified asthma, uncomplicated; E11.9 Type 2 diabetes mellitus without complications; Z79.84 Long term (current) use of oral hypoglycemic drugs
CPT/HCPCS: 99281-25

== ENCOUNTER 2018-09-05 14:11 | Emergency (ER) | payer OTHER ==
--- NOTE | 2018-09-05 14:27 | PDOC ---
Rapid Medical Evaluation Chief Complaint: Cold Symptoms Time Seen by Provider: 09/05/18 14:24 Medical Evaluation: Allergies Allergy/AdvReac Type Severity Reaction Status Date / Time codeine [Codeine] Allergy Severe anaphylaxis Verified 07/04/18 18:54 09/05/18 14:24 I performed a brief in person evaluation. CC: Wheezing HPI: Pt is a 48 YO male with a complaint of fever, cough, myalgias x 3 days. Pt did not receive his influenza vaccination. Pt has been exposed to sick contacts and is dubious as to the diagnosis. Denies recent travel. PE: Skin: Clear Lungs: Clear Heart: RRR MS: Moves all extremities without difficulty Neuro: Alert Psych: Appropriate affect Pt will go to [facility] for further evaluation. Discharge Disposition - Diagnosis Common cold - Referrals - Patient Instructions - Post Discharge Activity
[2018-09-05 14:28] VITALS: BP 137/78; PULSE 78; TEMP 98; BMI 29.5
[2018-09-05] MEDS ORDERED: DEXAMETHASONE LIQUID 0.5 MG/5 ML 240 ML BULK BOTTLE PO ONE (14:52)
[2018-09-05] MEDS ORDERED: ALBUTEROL SO4 2.5/IPRATROPIUM 0.5 INH SOL 3 ML VIAL.NEB. NEB ONE ×2 (14:52→14:55)
[2018-09-05] MEDS ORDERED: DEXAMETHASONE SOD PHOSPHATE 10 MG/1 ML VIAL ONE (14:55)
--- NOTE | 2018-09-05 15:13 | PDOC ---
History of Present Illness - General Chief Complaint: Cold Symptoms Stated Complaint: COLD SYMPTOMS Time Seen by Provider: 09/05/18 14:24 History Source: Patient Exam Limitations: No Limitations - History of Present Illness Initial Comments: 09/05/18 15:31 Patient is a 48-year-old male who presents to the ER with 4 days of cold-like symptoms. Admits to bodyaches, sore throat, cough and chest tightness. Patient has history of asthma. Denies fevers, shortness of breath, difficulty breathing , nausea, vomiting and diarrhea. Patient states he has not tried any medication at home for his symptoms. Past History - Travel Traveled outside of the country in the last 30 days: No Close contact w/someone who was outside of country & ill: No - Past Medical History Allergies/Adverse Reactions: Allergies Allergy/AdvReac Type Severity Reaction Status Date / Time codeine [Codeine] Allergy Severe anaphylaxis Verified 07/04/18 18:54 Home Medications: Ambulatory Orders Metformin HCl [Glucophage] 1,000 mg PO BID 7 Days #14 tablet 11/05/17 Albuterol Sulfate Inhaler - [Ventolin HFA Inhaler -] 1 - 2 inh PO Q4H #1 inhaler 09/05/18 Benzonatate [Tessalon Pearls -] 100 mg PO TID #21 capsule 09/05/18 Methylprednisolone [Medrol Dose Kory] 4 mg PO ASDIR #21 tablet 09/05/18 Pseudoephedrine HCl 30 mg PO TID #30 tablet 09/05/18 Asthma: Yes COPD: No DVT: No Diabetes: Yes - Surgical History Abdominal Surgery: Yes (HERNIA) GI Surgery: No Neurologic Surgery: No - Immunization History Td Vaccination: Yes Immunization Up to Date: Yes - Suicide/Smoking/Psychosocial Hx Smoking Status: No Smoking History: Never smoked Have you smoked in the past 12 months: No Number of Cigarettes Smoked Daily: 0 Information on smoking cessation initiated: No Hx Alcohol Use: No Drug/Substance Use Hx: No Substance Use Type: None, Alcohol Hx Substance Use Treatment: No Review of Systems - Review of Systems Able to Perform ROS?: Yes Comments:: 09/05/18 14:51 CONSTITUTIONAL: Present: body aches Absent: fever, chills, diaphoresis, generalized weakness, malaise, loss of appetite HEENT: Present: nasal congestion, sore throat Absent: rhinorrhea, throat swelling, difficulty swallowing, mouth swelling, ear pain, eye pain, visual Changes CARDIOVASCULAR: Absent: chest pain, loss of consciousness, palpitations, irregular heart rate, peripheral edema RESPIRATORY: Present: cough Absent: shortness of breath, dyspnea with exertion, orthopnea, wheezing, stridor, hemoptysis GASTROINTESTINAL: Absent: abdominal pain, abdominal distension, nausea, vomiting, diarrhea, constipation, melena, hematochezia GENITOURINARY: Absent: dysuria, frequency, urgency, hesitancy, hematuria, flank pain, genital pain MUSCULOSKELETAL: Absent: myalgia, arthralgia, joint swelling SKIN: Absent: rash, itching, pallor HEMATOLOGIC/IMMUNOLOGIC: Absent: easy bleeding, easy bruising, lymphadenopathy, frequent infections ENDOCRINE: Absent: unexplained weight gain, unexplained weight loss, heat intolerance, cold intolerance NEUROLOGIC: Absent: headache, focal weakness or paresthesias, dizziness, unsteady gait, seizure, mental status changes, bladder or bowel incontinence PSYCHIATRIC: Absent: anxiety, depression, suicidal or homicidal ideation, hallucinations. Is the patient limited Indonesian proficient: No *Physical Exam - Vital Signs Last Vital Signs Temp Pulse Resp BP Pulse Ox 98.0 F 78 18 137/78 99 09/05/18 14:25 09/05/18 14:25 09/05/18 14:25 09/05/18 14:25 09/05/18 14:25 - Physical Exam Comments: 09/05/18 14:52 GENERAL: Well developed, well nourished. Awake and alert. No acute distress. HEENT: Normocephalic, atraumatic. PERRLA, EOMI. No conjunctival pallor. Sclera are non- icteric. Moist mucous membranes. Oropharynx is clear. NECK: Supple. Full ROM. No JVD. Carotid pulses 2+ and symmetric, without bruits. No thyromegaly. No lymphadenopathy. CARDIOVASCULAR: Regular rate and rhythm. No murmurs, rubs, or gallops. Distal pulses are 2+ and symmetric. Pt coughs when trying to take a deep breath PULMONARY: No evidence of respiratory distress. Lungs clear to auscultation bilaterally. No wheezing, rales or rhonchi. MUSCULOSKELETAL Normal range of motion at all joints. No bony deformities or tenderness. No CVA tenderness. EXTREMITIES: No cyanosis. No clubbing. No edema. No calf tenderness. SKIN: Warm and dry. Normal capillary refill. No rashes. No jaundice. NEUROLOGICAL: Alert, awake, appropriate. Cranial nerves 2-12 intact. No deficits to light touch and temperature in face, upper extremities and lower extremities. No motor deficits in the in face, upper extremities and lower extremities. Normoreflexic in the upper and lower extremities. Normal speech. Toes are down- going bilaterally. Gait is normal without ataxia. PSYCHIATRIC: Cooperative. Good eye contact. Appropriate mood and affect. Moderate Sedation - Procedure Monitoring Vital Signs: Procedure Monitoring Vital Signs Temperature 98.0 F 09/05/18 14:25 Pulse Rate 78 09/05/18 14:25 Respiratory Rate 18 09/05/18 14:25 Blood Pressure 137/78 09/05/18 14:25 O2 Sat by Pulse Oximetry (%) 99 09/05/18 14:25 Medical Decision Making - Medical Decision Making 09/05/18 15:33 Patient is a 48-year-old male who presents with 4 days of flulike symptoms. On exam patient with lungs clear to auscultation bilaterally, throat is nonerythematous without exudate or edema. Patient is unable to take a deep breath without coughing. PT afebrile, VSS. Unlikely flu or strep throat at this time. We'll treat as a common cold or bronchitis. Patient given a DuoNeb and steroids with relief of symptoms. Prescription sent to the pharmacy. Discharge home. I discussed the physical exam findings, ancillary test results and final diagnoses with the patient. I answered all of the patient's questions. The patient was satisfied with the care received and felt comfortable with the discharge plan and treatment plan. The Patient agrees to follow up with the primary care physician/specialist within 24-72 hours. Return precautions were given. *DC/Admit/Observation/Transfer Diagnosis at time of Disposition: Common cold - Discharge Dispostion Condition at time of disposition: Stable Decision to Admit order: No - Referrals Referrals: Kt Moses MD [Staff Physician] - - Patient Instructions Printed Discharge Instructions: DI for Viral Upper Respiratory Infection -- Adult Additional Instructions: You have an upper respiratory infection, or the common cold. Take the inhaler , 1-2 puffs every 4 hours Take the medrol dose pack as prescribed. This is for the cough and sore throat Take the Psudafed as directed for runny nose and congestion Take the tessalon perle for cough three times a day Please take Motrin 800 mg every 8 hours as needed for pain not to exceed 3000 mg a day. Drink plenty of fluids. Cough drops and warm tea may help your symptoms as well. Please follow up with her primary care doctor this week. Return to the emergency department if you have difficulty breathing, shortness of breath, worsening pain, nausea, vomiting or if you have any changes in your symptoms. - Post Discharge Activity Forms/Work/School Notes: Back to Work
== END 2018-09-05 15:26 | disposition home or self-care (01) ==
LOC: JERFT 14:11
PROC: 3E0F7GC Introduction of Other Therapeutic Substance into Respiratory Tract, Via Natural or Artificial Opening (ICD-10-PCS; principal; 2018-09-05)
DX: J00 Acute nasopharyngitis [common cold] (principal); E11.9 Type 2 diabetes mellitus without complications; Z79.84 Long term (current) use of oral hypoglycemic drugs; J45.909 Unspecified asthma, uncomplicated
CPT/HCPCS: 99281-25

== ENCOUNTER 2018-12-11 12:26 | Emergency (ER) | payer OTHER ==
[2018-12-11 12:37] VITALS: BP 128/79; PULSE 85; TEMP 97.9; BMI 29.5
[2018-12-11] MEDS ORDERED: KETOROLAC TROMETHAMINE 30 MG/1 ML VIAL IM ONE (13:06)
--- NOTE | 2018-12-11 13:11 | PDOC ---
History of Present Illness - General Chief Complaint: Toothache Stated Complaint: PATIENT HERE FOR TEETH ABSCESS\ PAIN OF 7 Time Seen by Provider: 12/11/18 12:44 Exam Limitations: No Limitations - History of Present Illness Initial Comments: 12/11/18 13:07 48 year old male with a history diabetes, hernia and hernia repair presents with toothache and swelling to left jaw. Complaining of pain, admits to no visit to the dentist in more than one year. Admits to pus draining from mass into mouth 12/11/18 13:13 Severity: moderate Modifying Factors: improves with: medication Associated Symptoms: reports: denies symptoms Aspirin Received prior to arrival: Yes: no aspirin today Asa Contraindications(Core Measure): No: Allergy Beta Lincoln Contraindications(Core Measure): Yes: Not Prescribed Beta Lincoln Given by EMS(Core Measure): No Beta Lincoln Taken at Home(Core Measure): No Beta Lincoln Not Indicated at this Time(Core Measure): No Past History - Travel Traveled outside of the country in the last 30 days: No Close contact w/someone who was outside of country & ill: No - Past Medical History Allergies/Adverse Reactions: Allergies Allergy/AdvReac Type Severity Reaction Status Date / Time codeine [Codeine] Allergy Severe anaphylaxis Verified 12/11/18 12:37 Home Medications: Ambulatory Orders Metformin HCl [Glucophage] 1,000 mg PO BID 7 Days #14 tablet 11/05/17 Clindamycin [Cleocin -] 600 mg PO Q8H #42 capsule 12/11/18 Ibuprofen 600 mg PO TID #20 tablet 12/11/18 Asthma: Yes COPD: No DVT: No Diabetes: Yes - Surgical History Abdominal Surgery: Yes (HERNIA) GI Surgery: No Neurologic Surgery: No - Immunization History Td Vaccination: Yes Immunization Up to Date: Yes - Suicide/Smoking/Psychosocial Hx Smoking Status: No Smoking History: Never smoked Have you smoked in the past 12 months: No Number of Cigarettes Smoked Daily: 0 Information on smoking cessation initiated: No Hx Alcohol Use: No Drug/Substance Use Hx: No Substance Use Type: None, Alcohol Hx Substance Use Treatment: No Review of Systems - Review of Systems Able to Perform ROS?: Yes Is the patient limited Argentine proficient: No Constitutional: No: Chills, Fever, Night Sweats HEENTM: Yes: Mouth Pain. No: Difficulty Swallowing Respiratory: No: Orthopnea, Shortness of Breath, Wheezing, Productive cough Cardiac (ROS): No: Edema, Lightheadedness, Palpitations ABD/GI: No: Poor Appetite, Poor Fluid Intake, Vomiting, Indigestion : No: Burning, Incontinence Musculoskeletal: No: Back Pain, Muscle Weakness Integumentary: No: Bruising, Erythema Neurological: No: Numbness, Tremors *Physical Exam - Vital Signs Last Vital Signs Temp Pulse Resp BP Pulse Ox 97.9 F 85 18 128/79 97 12/11/18 12:34 12/11/18 12:34 12/11/18 12:34 12/11/18 12:34 12/11/18 12:34 - Physical Exam General Appearance: Yes: Nourished, Appropriately Dressed HEENT: positive: CARINA, Pharynx Normal, Other (multiple decayed teeth, + tartar build up, swollen gums, left jaw with palpable abscess at gumline and within cheek ) Neck: positive: Supple. negative: Lymphadenopathy (R), Lymphadenopathy (L) Respiratory/Chest: positive: Lungs Clear, Normal Breath Sounds Cardiovascular: positive: Regular Rhythm, Regular Rate Extremity: positive: Normal Capillary Refill Neurologic: positive: asphalt tamper II-XII NML intact, Fully Oriented, Alert Medical Decision Making - Medical Decision Making 12/11/18 13:13 5 year old male with no significant medical or surgical history presents with parents who reports child is malaise, vomited and complaining of throat pain. Plan; analgesia antibiotics refer to oral surgeon 12/11/18 13:44 pain better no fever rx: clindamycin referred to dental clinic at [facility] *DC/Admit/Observation/Transfer Diagnosis at time of Disposition: Toothache, Tooth abscess - Discharge Dispostion Disposition: HOME Condition at time of disposition: Good Decision to Admit order: No - Prescriptions Prescriptions: Clindamycin [Cleocin -] 600 mg PO Q8H #42 capsule Ibuprofen 600 mg PO TID #20 tablet - Referrals Referrals: Pablo Sanchez MD [Primary Care Provider] - Call tomorrow (call for follow up ) Obi Sims MD [Non Staff, Medical] - Call tomorrow - Patient Instructions Printed Discharge Instructions: DI for Tooth Abscess, DI for Tooth Decay - Post Discharge Activity Forms/Work/School Notes: Back to Work
[2018-12-11] MEDS ORDERED: KETOROLAC TROMETHAMINE 30 MG/1 ML VIAL ONE (13:18)
== END 2018-12-11 13:55 | disposition home or self-care (01) ==
LOC: JERFT 12:26
PROC: 3E0233Z Introduction of Anti-inflammatory into Muscle, Percutaneous Approach (ICD-10-PCS; principal; 2018-12-11)
DX: K04.7 Periapical abscess without sinus (principal)
CPT/HCPCS: 96372; 99281-25

== ENCOUNTER 2019-01-16 13:47 | Emergency (ER) | payer OTHER ==
[2019-01-16 14:13] VITALS: BP 107/68; PULSE 75; TEMP 98; BMI 30.2
--- NOTE | 2019-01-16 16:41 | PDOC ---
History of Present Illness - General Chief Complaint: Injury Stated Complaint: LT. ANKLE PAIN Time Seen by Provider: 01/16/19 16:26 - History of Present Illness Initial Comments: 01/16/19 16:38 48-year-old male with a past medical history of diabetes presents for evaluation of left ankle pain. He describes an inversion injury while walking yesterday after stepping in a pothole. He points the lateral aspect left ankle as the area of his discomfort. Past History - Past Medical History Allergies/Adverse Reactions: Allergies Allergy/AdvReac Type Severity Reaction Status Date / Time codeine [Codeine] Allergy Severe anaphylaxis Verified 01/16/19 14:10 Home Medications: Ambulatory Orders Metformin HCl [Glucophage] 1,000 mg PO BID 7 Days #14 tablet 11/05/17 Asthma: Yes COPD: No DVT: No Diabetes: Yes - Surgical History Abdominal Surgery: Yes (HERNIA) GI Surgery: No Neurologic Surgery: No - Immunization History Td Vaccination: Yes Immunization Up to Date: Yes - Suicide/Smoking/Psychosocial Hx Smoking Status: No Smoking History: Never smoked Have you smoked in the past 12 months: No Number of Cigarettes Smoked Daily: 0 Information on smoking cessation initiated: No Hx Alcohol Use: No Drug/Substance Use Hx: No Substance Use Type: None, Alcohol Hx Substance Use Treatment: No Review of Systems - Review of Systems Musculoskeletal: Yes: Joint Pain *Physical Exam - Vital Signs Last Vital Signs Temp Pulse Resp BP Pulse Ox 98 F 75 16 107/68 100 01/16/19 14:10 01/16/19 14:10 01/16/19 14:10 01/16/19 14:10 01/16/19 14:10 - Physical Exam Comments: 01/16/19 16:39 Left ankle skin color and temperature are normal range of motion is full. There is no swelling. There is no tenderness about the knee proximal fibula or along its distal coarse. No tenderness about the medial malleolus navicular base of the fifth metatarsal. Mild tenderness over the anterior aspect of the lateral malleolus and ATFL. No instability or gross sensorimotor deficits is neurovascularly intact ED Treatment Course - RADIOLOGY Radiology Studies Ordered: Category Date Time Status ANKLE-LEFT [RAD] Stat Radiology 01/16/19 16:28 Ordered Medical Decision Making - Medical Decision Making 01/16/19 16:39 No fracture trauma or destructive process on radiograph today. Weight-bear as tolerated with Aircast and crutches follow-up with orthopedics. Tylenol and Motrin for pain as directed. *DC/Admit/Observation/Transfer Diagnosis at time of Disposition: Ankle sprain - Discharge Dispostion Disposition: HOME Condition at time of disposition: Stable Decision to Admit order: No - Referrals Referrals: Pablo Sanchez MD [Primary Care Provider] - Herbert Forbes DO [Staff Physician] - - Patient Instructions Printed Discharge Instructions: Ankle Sprain, DI for Ankle Sprain Additional Instructions: He may weight-bear as tolerated with the Aircast and crutches. Tylenol and Motrin as directed for pain. Return to the emergency room for worsening symptoms. Follow-up with orthopedic surgery in 1-2 days for further evaluation and treatment options. - Post Discharge Activity
== END 2019-01-16 16:51 | disposition home or self-care (01) ==
LOC: JERFT 13:47
DX: S93.402A Sprain of unspecified ligament of left ankle, initial encounter (principal); W17.89XA Other fall from one level to another, initial encounter; Y93.89 Activity, other specified; Y92.414 Local residential or business street as the place of occurrence of the external cause; Y99.8 Other external cause status
CPT/HCPCS: 73610-TC-LT-FY; 99281-25

== ENCOUNTER 2019-03-13 17:37 | Emergency (ER) | payer OTHER ==
[2019-03-13 17:51] VITALS: BP 142/97; PULSE 80; TEMP 98.5; BMI 23.6
--- NOTE | 2019-03-13 17:56 | PDOC ---
Rapid Medical Evaluation Time Seen by Provider: 03/13/19 17:46 Medical Evaluation: Allergies Allergy/AdvReac Type Severity Reaction Status Date / Time codeine [Codeine] Allergy Severe anaphylaxis Verified 01/16/19 14:10 03/13/19 17:47 I have performed a brief in-person evaluation of this patient. The patient presents with a chief complaint of: Multiple dental pain since last night. Currently have temporary filling in place that pt purchased OTC. No recent trauma. Has not see a dentist in years. No NIDDM, asthma Pertinent physical exam findings:appears uncomfortable, poor dentition on exam I have ordered the following:nothing The patient will proceed to the ED for further evaluation Discharge Disposition - Diagnosis Toothache - Referrals - Patient Instructions - Post Discharge Activity
[2019-03-13] MEDS ORDERED: BUPIVACAINE HCL/PF (5 MG/ML) 30 ML VIAL IJ ONE (18:35)
[2019-03-13] MEDS ORDERED: LIDOCAINE HCL 2% (50ML VIAL) SQ ONE (18:35)
[2019-03-13] MEDS ORDERED: LIDOCAINE HCL 2% (20ML MULTI-DOSE VIAL) NR ONE (18:41)
[2019-03-13] MEDS ORDERED: BUPIVACAINE HCL/PF 0.5% (5MG/ML) 10 ML VIAL ONE (18:42)
[2019-03-13] MEDS ORDERED: KETOROLAC TROMETHAMINE 60 MG/2 ML VIAL IM ONE (18:51)
--- NOTE | 2019-03-13 19:01 | PDOC ---
History of Present Illness - General Chief Complaint: Toothache Stated Complaint: TOOTHACHE Time Seen by Provider: 03/13/19 17:46 History Source: Patient Exam Limitations: No Limitations - History of Present Illness Initial Comments: 03/13/19 18:58 HISTORY OF PRESENT ILLNESS: 48-year-old male past medical history of non-insulin -dependent diabetes presents emergency department for evaluation of toothache to molars on the right upper and lower as well as the left lower quadrant of his mouth. Patient reports the pain started yesterday but was tolerable. Earlier today the pain became intolerable rate had a searing pain in his teeth rated 10/10. Patient went to pharmacy and bought [id number] temporary filling which she has applied which is done little to ease the pain. Patient took Tylenol with minimal relief. No recent travel or sick contacts. PAST MEDICAL HISTORY: NIDDM SURGICAL HISTORY: Denies ALLERGIES: Codeine REVIEW OF SYSTEMS General/Constitutional: Denies fever or chills. Denies weakness, weight change. HEENT: see HPI Cardiovascular: Denies chest pain or shortness of breath. Respiratory: Denies cough, wheezing, or hemoptysis. Gastrointestinal: Denies nausea, vomiting, diarrhea or constipation. Denies rectal bleeding. Genitourinary: Denies dysuria, frequency, or change in urination. Musculoskeletal: Denies joint or muscle swelling or pain. Denies neck or back pain. Skin and breasts: Denies rash or easy bruising. Neurologic: Denies headache, vertigo, loss of consciousness, or loss of sensation. Psychiatric: Denies depression or anxiety. Endocrine: Denies increased thirst. Denies abnormal weight change. Hematologic/Lymphatic: Denies anemia, easy bleeding, or history of blood clots. Allergic/Immunologic: Denies hives or skin allergy. Denies latex allergy. PHYSICAL EXAM General Appearance: Well-appearing, appropriately dressed. No apparent distress , no intoxication. HEENT: EOMI, PERRLA, normal ENT inspection, normal voice, TMs normal, pharynx normal. No conjunctival pallor. No photophobia, scleral icterus. Poor dentition with multiple dental caries present. No palpable abscess present. No submandibular lymphadenopathy present. Neck: Supple. Trachea midline. No tenderness, rigidity, carotid bruit, stridor , lymphadenopathy, or thyromegaly. Respiratory/Chest: Lungs CTAB. No shortness of breath, chest tenderness, respiratory distress, accessory muscle use. No crackles, rales, rhonchi, stridor , wheezing, dullness Cardiovascular: RRR. S1, S2. No JVD, murmur, bradycardia, tachycardia. Neurologic: county auditor II-XII intact. Fully oriented, alert. Appropriate mood/affect. Motor strength 5/5. No appreciable EOM palsy, facial droop or sensory deficit. Past History - Past Medical History Allergies/Adverse Reactions: Allergies Allergy/AdvReac Type Severity Reaction Status Date / Time codeine [Codeine] Allergy Severe anaphylaxis Verified 01/16/19 14:10 Home Medications: Ambulatory Orders Metformin HCl [Glucophage] 1,000 mg PO BID 7 Days #14 tablet 11/05/17 Penicillin V Potassium [Pen Vee K -] 500 mg PO QID #28 tablet 03/13/19 Asthma: Yes COPD: No DVT: No Diabetes: Yes - Surgical History Abdominal Surgery: Yes (HERNIA) GI Surgery: No Neurologic Surgery: No - Immunization History Td Vaccination: Yes Immunization Up to Date: Yes - Suicide/Smoking/Psychosocial Hx Smoking Status: No Smoking History: Never smoked Have you smoked in the past 12 months: No Number of Cigarettes Smoked Daily: 0 Information on smoking cessation initiated: No Hx Alcohol Use: No Drug/Substance Use Hx: No Substance Use Type: None, Alcohol Hx Substance Use Treatment: No *Physical Exam - Vital Signs Last Vital Signs Temp Pulse Resp BP Pulse Ox 98.5 F 80 18 142/97 98 03/13/19 17:48 03/13/19 17:48 03/13/19 17:48 03/13/19 17:48 03/13/19 17:48 ED Treatment Course - Medications Given in the ED: ED Medications Discontinued Medications Generic Name Dose Route Start Last Admin Trade Name Freq PRN Reason Stop Dose Admin Bupivacaine HCl 2 mg 03/13/19 18:35 03/13/19 18:48 Bupivacaine 0.5% Vial IJ 03/13/19 18:36 2 mg ONCE ONE Administration Lidocaine HCl 2 mg 03/13/19 18:35 03/13/19 18:49 Xylocaine 2% SQ 03/13/19 18:36 2 mg ONCE ONE Administration Medical Decision Making - Medical Decision Making 03/13/19 19:00 A/P: 48-year-old male with multiple toothaches Bilateral inferior alveolar block placed Right superior alveolar block Toradol 30 mg IM Discharge home with prescription for pen VK and referral to dentist for definitive treatment. I discussed the physical exam findings, ancillary test results and final diagnoses with the patient. I answered all of the patient's questions. The patient was satisfied with the care received and felt comfortable with the discharge plan and treatment plan. The patient will call their primary care physician within 24 hours to arrange follow-up and will return to the Emergency Department with any new, persistent or worsening symptoms. *DC/Admit/Observation/Transfer Diagnosis at time of Disposition: Toothache - Discharge Dispostion Disposition: HOME Condition at time of disposition: Stable Decision to Admit order: No - Prescriptions Prescriptions: Penicillin V Potassium [Pen Vee K -] 500 mg PO QID #28 tablet - Referrals - Patient Instructions Additional Instructions: Rest, drink lots of fluids: Teas, water, soups Saltwater gargles/ keep mouth clean and rinse after each meal May use wet teabag for pain relief to area Avoid hard chewing foods, stick to ice cream, Jell-O, yogurt etc. Tylenol or Motrin for fever and pain Complete all medication as prescribed Call [facility] at [phone] Followup with private physician in one to 2 days as needed Return to emergency department for worsened symptoms, fevers, swelling to face or worsened pain - Post Discharge Activity Forms/Work/School Notes: Back to Work
[2019-03-13] MEDS ORDERED: KETOROLAC TROMETHAMINE 60 MG/2 ML VIAL ONE (19:03)
== END 2019-03-13 19:10 | disposition home or self-care (01) ==
LOC: JERFT 17:37
PROC: 3E0X3BZ Introduction of Anesthetic Agent into Cranial Nerves, Percutaneous Approach (ICD-10-PCS; principal; 2019-03-13)
DX: K08.89 Other specified disorders of teeth and supporting structures (principal)
CPT/HCPCS: 64450; 99281-25

== ENCOUNTER 2019-04-06 13:29 | Emergency (ER) | payer OTHER ==
[2019-04-06] MEDS ORDERED: SODIUM CHLORIDE 1,000 ML IV STA (13:35)
--- NOTE | 2019-04-06 13:35 | PDOC ---
Rapid Medical Evaluation Time Seen by Provider: 04/06/19 13:32 Medical Evaluation: Allergies Allergy/AdvReac Type Severity Reaction Status Date / Time codeine [Codeine] Allergy Severe anaphylaxis Verified 01/16/19 14:10 04/06/19 13:32 I have performed a brief exam on this patient. CC: left sided chest pain with tingling to fingers and toes PE: Lungs CTAB. Skin cool. Orders: cardiac w/u The patient will proceed to the ER for further evaluation. Discharge Disposition - Diagnosis Chest pain - Referrals - Patient Instructions - Post Discharge Activity
[2019-04-06 14:13] VITALS: BP 109/71; PULSE 90; TEMP 98.7; BMI 29.5
--- NOTE | 2019-04-07 15:20 | EKG ---
Test Reason : Blood Pressure : / mmHG Vent. Rate : 078 BPM Atrial Rate : 078 BPM P-R Int : 160 ms QRS Dur : 090 ms QT Int : 370 ms P-R-T Axes : 032 037 047 degrees QTc Int : 421 ms NORMAL SINUS RHYTHM NORMAL ECG WHEN COMPARED WITH ECG OF 12-NOV-2017 16:58, NO SIGNIFICANT CHANGE WAS FOUND Confirmed by MD Ambrose Daniel ([id number]) on 04/07/2019 3:20:13 PM Referred By: Confirmed By:Donta Ambrose MD
== END 2019-04-06 14:43 | disposition left against medical advice (07) ==
LOC: JER 13:29
DX: Z53.21 Procedure and treatment not carried out due to patient leaving prior to being seen by health care provider (principal)
CPT/HCPCS: 93005; 93010; 99281-25

== ENCOUNTER 2020-10-29 17:04 | Emergency (ER) | payer OTHER ==
[2020-10-29 17:38] VITALS: BP 128/78; PULSE 84; BMI 29.5
[2020-10-29] MEDS ORDERED: KETOROLAC TROMETHAMINE 30 MG/1 ML VIAL IM ONE (17:44)
[2020-10-29] MEDS ORDERED: KETOROLAC TROMETHAMINE 30 MG/1 ML VIAL ONE (17:53)
== END 2020-10-29 18:47 | disposition home or self-care (01) ==
LOC: JERFT 17:04 → JER 17:04 → JERFT 18:47
PROC: 3E0233Z Introduction of Anti-inflammatory into Muscle, Percutaneous Approach (ICD-10-PCS; principal; 2020-10-29)
DX: S86.112A Strain of other muscle(s) and tendon(s) of posterior muscle group at lower leg level, left leg, initial encounter (principal)
CPT/HCPCS: 73590-TC-LT-FY; 93971-TC; 99284-25

== ENCOUNTER 2021-08-10 20:11 | Emergency (ER) | payer OTHER ==
[2021-08-10 20:37] VITALS: BP 96/55; PULSE 96; TEMP 98.7; BMI 30.2
[2021-08-10] MEDS ORDERED: ALBUTEROL SO4 0.083% IH SOL 2.5 MG/3 ML VIAL.NEB. NEB ONE (21:16)
== END 2021-08-10 21:49 | disposition home or self-care (01) ==
LOC: JER 20:11 → JERFT 20:11
DX: B34.9 Viral infection, unspecified (principal)
CPT/HCPCS: 87804; 99283-25; C9803; U0003; U0005

== ENCOUNTER 2021-08-13 10:39 | Emergency (ER) | payer OTHER ==
[2021-08-13 11:31] VITALS: BP 129/73; PULSE 84; TEMP 98.4; BMI 30.2
[2021-08-13] MEDS ORDERED: BAMLANIVIMAB 700 MG, ETESEVIMAB 1,400 MG in SODIUM CHLORIDE 100 ML IVPB ONE (13:18)
== END 2021-08-13 17:58 | disposition home or self-care (01) ==
LOC: JER 10:39 → JCOVINFU 10:39
PROC: 3E033GC Introduction of Other Therapeutic Substance into Peripheral Vein, Percutaneous Approach (ICD-10-PCS; principal; 2021-08-13)
DX: U07.1 COVID-19 (principal)
CPT/HCPCS: 99284-25; Q0245

== ENCOUNTER 2022-03-07 19:08 | Emergency (ER) | payer OTHER ==
[2022-03-07 19:17] VITALS: BP 126/75; PULSE 74; TEMP 98; BMI 29.5
[2022-03-07] MEDS ORDERED: ACETAMINOPHEN 500 MG TABLET (FP) PO ONE (19:46)
[2022-03-07] MEDS ORDERED: IBUPROFEN 600 MG TABLET (FP) PO ONE ×2 (19:46→20:00)
[2022-03-07] MEDS ORDERED: ACETAMINOPHEN 500 MG TABLET (FP) ONE (20:01)
[2022-03-07 20:58] LABS: THROAT:GRP A STREP NOT DETECTED (NOTDETECTED)
== END 2022-03-07 20:10 | disposition home or self-care (01) ==
LOC: JERFT 19:08
DX: U07.1 COVID-19 (principal); H92.02 Otalgia, left ear
CPT/HCPCS: 0241U-QW; 87651; 99283-25

== ENCOUNTER 2025-03-01 07:18 | Emergency (ER) | payer OTHER ==
[2025-03-01 07:27] VITALS: BP 128/93; PULSE 84; RESP 20; TEMP 98.4; BMI 28.2
== END 2025-03-01 10:07 | disposition home or self-care (01) ==
LOC: JER 07:18
DX: S50.11XA Contusion of right forearm, initial encounter (principal); R20.2 Paresthesia of skin; W46.0XXA Contact with hypodermic needle, initial encounter
CPT/HCPCS: 93971; 99284-25